=== PATIENT | female | born 1960 | race American Indian/Alaskan Native ===

== ENCOUNTER 2017-11-16 14:22 | Inpatient (IN) | payer MEDICARE ==
[2017-11-16] MEDS ORDERED: ASPIRIN PO ONE (14:43)
[2017-11-16 16:25] LABS: Basophils # (Auto) 0.1 K/mm3 (0.0-0.1); Basophils % (Auto) 2.6 % (0.0-1.8); Eosinophils # (Auto) 0.4 K/mm3 (0.0-0.4); Eosinophils % (Auto) 8.4 % (0.0-4.3); Hematocrit 40.8 % (30.3-42.9); Hemoglobin 13.5 gm/dl (10.1-14.3); Lymphocytes # (Auto) 1.5 K/mm3 (1.2-5.4); Lymphocytes % (Auto) 36.5 % (13.4-35.0); Mean Corpuscular HGB Conc 33 % (30-34); Mean Corpuscular Hemoglobin 33 pg (28-32); Mean Corpuscular Volume 98 fl (79-97); Monocytes # (Auto) 0.3 K/mm3 (0.0-0.8); Platelet Count 170 K/mm3 (140-440); Red Blood Count 4.15 M/mm3 (3.65-5.03); Red Cell Distribution Width 17.3 % (13.2-15.2)
[2017-11-16 16:35] LABS: BUN/Creatinine Ratio 11; Blood Urea Nitrogen 14 mg/dL (7-17); Calcium 10.2 mg/dL (8.4-10.2); Hemolysis Index 21
[2017-11-16] MEDS ORDERED: PROVENTIL IH ONE (17:30)
[2017-11-16] MEDS ORDERED: ATROVENT IH ONE (17:30)
--- NOTE | 2017-11-16 17:40 | Emergency Department Report ---
HPI - General Chief Complaint: Chest Pain Time Seen by Provider: 11/16/17 17:20 - HPI HPI: Room 19 The patient is a 57-year-old female presented with a chief complaint of shortness of breath and chest pain. The patient states yesterday she began developing shortness of breath in addition to dyspnea on exertion. The patient states when she awakened this morning she had a dull constant substernal chest pain and occasional pleuritic component. The patient admits to nonproductive cough since yesterday. Patient denies nausea/vomiting or diaphoresis with her pain. Patient denies any history of fever. Patient admits to occasional rhinorrhea. The patient currently gets her pain score of 8/10. The patient states her last stress test occurred over 5 years ago she could not recall the last time she received a cardiac catheterization Location: Chest, lungs Duration: [See above] Quality: Dull Severity: 8/10 Modifying factors: Exertion worsens shortness of breath Context: [see above] Mode of transportation: [not driving] ED Past Medical Hx - Past Medical History Previous Medical History?: Yes Hx Hypertension: Yes Hx COPD: Yes Hx HIV: Yes (last known CD4 count was "normal" per patient in 2017) Additional medical history: PAD, Gout - Surgical History Past Surgical History?: Yes Hx Internal Defibrillator: Yes Additional Surgical History: CABG - Family History Family history: no significant - Social History Smoking Status: Current Every Day Smoker (1/2 pack per day) Substance Use Type: None (denies illicit drug use), Alcohol (occasional) ED Review of Systems ROS: Stated complaint: CX PAIN/AMAURI Other details as noted in HPI Constitutional: denies: diaphoresis Eyes: denies: eye pain ENT: other (rhinorrhea) Respiratory: cough, shortness of breath, SOB with exertion, wheezing Cardiovascular: chest pain Endocrine: denies: unexplained weight loss Gastrointestinal: denies: abdominal pain, nausea, vomiting Musculoskeletal: myalgia Skin: denies: change in color Neurological: denies: headache Physical Exam - Physical Exam Vital Signs: Vital Signs 11/16/17 11/16/17 11/16/17 14:38 14:44 17:15 Temperature 97.9 F 98.2 F Pulse Rate 101 H 93 H Respiratory 22 22 19 Rate Blood Pressure 107/77 Blood Pressure 119/84 [Left] O2 Sat by Pulse 95 97 96 Oximetry Physical Exam: GENERAL: The patient is well-developed well-nourished female sitting on stretcher using cellphone not appearing to be in acute distress. [] HEENT: Normocephalic. Atraumatic. Extraocular motions are intact. Patient has moist mucous membranes. NECK: Supple. Trachea midline CHEST/LUNGS: Clear to auscultation. There is no respiratory distress noted. HEART/CARDIOVASCULAR: Regular. There is no tachycardia. There is no gallop rub or murmur. ABDOMEN: Abdomen is soft, nontender. Patient has normal bowel sounds. There is no abdominal distention. SKIN: There is no rash. There is no edema. There is no diaphoresis. NEURO: The patient is awake, alert, and oriented. The patient is cooperative. The patient has normal speech MUSCULOSKELETAL: There is no evidence of acute injury. ED Course Vital Signs 11/16/17 11/16/17 11/16/17 14:38 14:44 17:15 Temperature 97.9 F 98.2 F Pulse Rate 101 H 93 H Respiratory 22 22 19 Rate Blood Pressure 107/77 Blood Pressure 119/84 [Left] O2 Sat by Pulse 95 97 96 Oximetry - Consultations Consultation #1: 11/16/17 19:52 Informed by financial secretary that [facility] medicine is unable to perform V/Q scans currently secondary to lack of media ED Medical Decision Making - Lab Data Result diagrams: 11/16/17 15:47 11/16/17 15:47 - EKG Data -: EKG Interpreted by Me Rate: normal (paced rhythm at 98 bpm) - EKG Data When compared to previous EKG there are: previous EKG unavailable Interpretation: other (no ischemic changes seen) - Differential Diagnosis COPD exacerbation, CHF, ACS, pneumonia Critical care attestation.: If time is entered above; I have spent that time in minutes in the direct care of this critically ill patient, excluding procedure time. ED Disposition Clinical Impression: Shortness of breath, Hypoxia, Chest pain Disposition: OP ADMIT IP TO THIS HOSP Is pt being admited?: Yes Does the pt Need Aspirin: Yes Condition: Fair Instructions: Chest Pain (ED) Referrals: PRIMARY CARE, [Primary Care Provider] - 3-5 Days Time of Disposition: 20:00 (hospitalist paged (Dr Mobley))
[2017-11-16] MEDS ORDERED: MORPHINE IV ONE (18:11)
[2017-11-16] MEDS ORDERED: ZOFRAN IV ONE (18:11)
--- NOTE | 2017-11-16 18:38 | XRay Report ---
FINAL REPORT EXAM: XR CHEST 1V AP HISTORY: chest pain TECHNIQUE: Chest single AP PRIORS: None. FINDINGS: AICD/pacemaker identified lead wires intact. Cardiac silhouette is moderately enlarged. No focal pulmonary infiltrate identified. No pleural fluid collection seen. Pulmonary vasculature is unremarkable. There is a cardiac valve prosthesis and IMPRESSION: Pacemaker/AICD Cardiomegaly and cardiac valve prosthesis No acute pulmonary findings
[2017-11-16] MEDS ORDERED: NITRO-BID 2% TP ONE (20:01)
[2017-11-16] MEDS ORDERED: TYLENOL PO PRN (23:28)
[2017-11-16] MEDS ORDERED: NITROSTAT SL PRN (23:28)
[2017-11-16] MEDS ORDERED: ZOFRAN IV PRN (23:29)
[2017-11-16] MEDS ORDERED: ASPIRIN ONE (23:46)
[2017-11-16] MEDS: MORPHINE IV PRN (23:58)
[2017-11-17] MEDS: PROVENTIL IH PRN (01:04)
[2017-11-17 01:33] LABS: Creatine Kinase MB 2.9 ng/mL (0.0-4.0)
--- NOTE | 2017-11-17 03:11 | History and Physical Report ---
History of Present Illness Date of examination: 11/16/17 Date of admission: 11/16/17 23:21 Chief complaint: Chief complaint is chest pain, complaining of shortness of breath History of present illness: History of presenting illness, patient is a 57 year old female who has a having chest pain going on for a few days associated with shortness of breath. He has no history of nausea and vomiting, there is no history of diaphoresis the patient also denies history of dizziness and said that the pain does not radiate. She has no history of fever and no history of cough or chills. Past History Past Medical History: COPD, HIV/AIDS, hypertension, other (GOUT) Past Surgical History: No surgical history Social history: no significant social history Family history: no significant family history Medications and Allergies Allergies Allergy/AdvReac Type Severity Reaction Status Date / Time Penicillins Allergy Hives Verified 11/16/17 14:43 Home Medications Medication Instructions Recorded Confirmed Last Taken Type ALBUTEROL Inhaler [Proair] 2 puff IH QID PRN 11/16/17 11/16/17 Unknown History Allopurinol [Zyloprim] 100 mg PO DAILY 11/16/17 11/16/17 Unknown History Clopidogrel Bisulfate [Plavix] 75 mg PO DAILY 11/16/17 11/16/17 Unknown History Emtricitab/Rilpiviri/Tenof Ala 1 each PO DAILY 11/16/17 11/16/17 Unknown History [Odefsey Tablet] Furosemide [Lasix TAB] 40 mg PO DAILY 11/16/17 11/16/17 Unknown History Metoprolol [Lopressor TAB] 50 mg PO BID 11/16/17 11/16/17 Unknown History Potassium Chloride [K-Dur] 20 meq PO DAILY 11/16/17 11/16/17 Unknown History Active Meds: Active Medications Acetaminophen (Tylenol) 650 mg PO Q4H PRN PRN Reason: Headache Albuterol (Proventil) 2.5 mg IH Q6HRT PRN PRN Reason: Shortness Of Breath Last Admin: 11/17/17 01:04 Dose: 2.5 mg Aspirin (Aspirin) 325 mg PO QDAY BERE Heparin Sodium (Porcine) (Heparin) 5,000 unit SUB-Q Q12HR BERE Levofloxacin/Dextrose (Levaquin 750mg/150ml) 750 mg in 150 mls @ 100 mls/hr IV Q24HR [facility]; Protocol Methylprednisolone Sodium Succinate (Solu-Medrol) 60 mg IV Q8HR BERE Last Admin: 11/16/17 23:57 Dose: 60 mg Morphine Sulfate (Morphine) 2 mg IV Q5MIN PRN PRN Reason: Chest Pain Last Admin: 11/16/17 23:58 Dose: 2 mg Nitroglycerin (Nitrostat) 0.4 mg SL .Q5MIN PRN PRN Reason: Chest Pain Nitroglycerin (Nitro-Bid 2%) 1 inch TP QIDNTG [facility]; Protocol Ondansetron HCl (Zofran) 4 mg IV Q8H PRN PRN Reason: Nausea And Vomiting Review of Systems Constitutional: weakness, no weight loss, no weight gain, no chills, no sweats, no malaise, no lethargy Eyes: bilateral: other (NO BILATERAL EYE SYMPTOMS) Ears, nose, mouth and throat: no ear pain, no nose pain, no nasal congestion, no mouth pain, no hoarseness, no sore throat, no headache, no vertigo, no pain front of neck Breasts: deferred Cardiovascular: chest pain, no orthopnea, no palpitations, no syncope, no leg edema Respiratory: cough, shortness of breath Gastrointestinal: no abdominal pain, no vomiting, no change in bowel habits, no melena, no loss of appetite, no jaundice Genitourinary Female: no flank pain, no urgency, no urge incontinence, no vaginal dryness Rectal: no pain, no itching Musculoskeletal: no neck pain, no low back pain, no myalgias, no loss of height Integumentary: no rash, no pruritis, no redness, no sores, no lesions, no darkening of skin, no striae, no hirsutism Neurological: weakness, no tingling, no seizures, no syncope, no headaches, no migraines, no change in speech, no confusion, no double vision, no loss of vision Psychiatric: no sleep disturbances, no insomnia, no change in appetite, no hopelessness, no anhedonia Endocrine: no cold intolerance, no polyphagia, no polydipsia, no proptosis Hematologic/Lymphatic: no easy bruising, no easy bleeding, no lymphadenopathy, no lymphedema Allergic/Immunologic: no urticaria, no persistent infections Exam - Constitutional Vitals: Temp Pulse Resp BP Pulse Ox 98.2 F 95 H 20 99/67 94 11/17/17 00:42 11/17/17 01:04 11/17/17 01:04 11/17/17 00:42 11/17/17 01:08 General appearance: Present: no acute distress, well-nourished. Absent: disheveled - EENT Eyes: Present: PERRL, EOM intact. Absent: irregular pupil, scleral icterus, conjunctival injection, miosis ENT: hearing intact, no hearing decreased, no thrush - Neck Neck: Present: supple, normal ROM. Absent: masses or JVD, carotid bruits - Respiratory Respiratory effort: other Respiratory: bilateral: wheezing - Cardiovascular Rhythm: regular Heart Sounds: Present: S1 & S2. Absent: gallop, systolic murmur, diastolic murmur, rub, click - Extremities Extremities: no ischemia, No edema, Full ROM Peripheral Pulses: within normal limits - Abdominal General gastrointestinal: Present: soft, non-tender, non-distended, normal bowel sounds. Absent: tender, distended, rigid, absent bowel sounds, hepatomegaly, splenomegaly Female genitourinary: Present: deferred - Rectal Rectal Exam: deferred - Integumentary Integumentary: Present: clear, warm - Musculoskeletal Musculoskeletal: strength equal bilaterally - Neurologic Neurologic: CNII-XII intact Results - Labs CBC & Chem 7: 11/16/17 15:47 11/16/17 15:47 Labs: Laboratory Last Values WBC 4.2 K/mm3 (4.5-11.0) L 11/16/17 15:47 RBC 4.15 M/mm3 (3.65-5.03) 11/16/17 15:47 Hgb 13.5 gm/dl (10.1-14.3) 11/16/17 15:47 Hct 40.8 % (30.3-42.9) 11/16/17 15:47 MCV 98 fl (79-97) H 11/16/17 15:47 MCH 33 pg (28-32) H 11/16/17 15:47 MCHC 33 % (30-34) 11/16/17 15:47 RDW 17.3 % (13.2-15.2) H 11/16/17 15:47 Plt Count 170 K/mm3 (140-440) 11/16/17 15:47 Lymph % (Auto) 36.5 % (13.4-35.0) H 11/16/17 15:47 [place] % (Auto) 7.0 % (0.0-7.3) 11/16/17 15:47 Eos % (Auto) 8.4 % (0.0-4.3) H 11/16/17 15:47 Baso % (Auto) 2.6 % (0.0-1.8) H 11/16/17 15:47 Lymph # 1.5 K/mm3 (1.2-5.4) 11/16/17 15:47 [place] # 0.3 K/mm3 (0.0-0.8) 11/16/17 15:47 Eos # 0.4 K/mm3 (0.0-0.4) 11/16/17 15:47 Baso # 0.1 K/mm3 (0.0-0.1) 11/16/17 15:47 Seg Neutrophils % 45.5 % (40.0-70.0) 11/16/17 15:47 Seg Neutrophils # 1.9 K/mm3 (1.8-7.7) 11/16/17 15:47 D-Dimer 274.00 ng/mlDDU (0-234) H 11/16/17 17:57 POC ABG pH 7.415 (7.35-7.45) 11/16/17 18:01 POC ABG pCO2 52.4 (35-45) H 11/16/17 18:01 POC ABG pO2 63 (80-105) L 11/16/17 18:01 POC ABG HCO3 33.6 11/16/17 18:01 POC ABG Total CO2 35 11/16/17 18:01 POC ABG O2 Sat 91 11/16/17 18:01 POC ABG Base Excess 9 11/16/17 18:01 FiO2 21 % 11/16/17 18:01 Sodium 147 mmol/L (137-145) H 11/16/17 15:47 Potassium 3.2 mmol/L (3.6-5.0) L 11/16/17 15:47 Chloride 100.9 mmol/L (98-107) 11/16/17 15:47 Carbon Dioxide 35 mmol/L (22-30) H 11/16/17 15:47 Anion Gap 14 mmol/L 11/16/17 15:47 BUN 14 mg/dL (7-17) 11/16/17 15:47 Creatinine 1.3 mg/dL (0.7-1.2) H 11/16/17 15:47 Estimated GFR 42 ml/min 11/16/17 15:47 BUN/Creatinine Ratio 11 % 11/16/17 15:47 Glucose 102 mg/dL (65-100) H 11/16/17 15:47 Calcium 10.2 mg/dL (8.4-10.2) 11/16/17 15:47 Lactate Dehydrogenase 244 units/L (91-180) H 11/16/17 17:57 Total Creatine Kinase 85 units/L (30-135) 11/17/17 00:26 CK-MB (CK-2) 2.9 ng/mL (0.0-4.0) 11/17/17 00:26 CK-MB (CK-2) Rel Index 3.4 (0-4) 11/17/17 00:26 Troponin T < 0.010 ng/mL (0.00-0.029) 11/16/17 23:44 NT-Pro-B Natriuret Pep 5214 pg/mL (0-900) H 11/16/17 17:57 Assessment and Plan - Patient Problems (1) Chest pain Current Visit: Yes Status: Acute Plan to address problem: Patient will be admitted to telemetry and will have cardiac enzyme involving troponin and CPK checked every 6 hours 2 more levels, patient will remain nothing by mouth for Lexiscan stress test in the morning. Patient will be on IV morphine 2 mg every 5 minutes as needed for pain and will be on aspirin 325 mg by mouth daily. Patient will be on Nitropaste 1inch to anterior chest wall 4 times a day and also will be on sublingual nitroglycerin for breakthrough chest pain, patient will be on IV Zofran 4 mg every 8 hours for nausea and vomiting and will be on Tylenol 650 mg by mouth every follow-up for headache and fever, patient will also be on oxygen by nasal cannula at 2 L/m (2) Hypoxia Current Visit: Yes Status: Acute
[2017-11-17] MEDS: NITRO-BID 2% TP SCH ×3 (05:39→13:45)
[2017-11-17] MEDS: MORPHINE IV PRN ×2 (05:48→13:46)
[2017-11-17 06:24] LABS: Creatine Kinase MB 2.9 ng/mL (0.0-4.0)
[2017-11-17] MEDS: HEPARIN SUB-Q SCH ×2 (09:48→21:55)
[2017-11-17] MEDS ORDERED: LASIX PO SCH (10:00)
[2017-11-17] MEDS ORDERED: LEVAQUIN 750MG/150ML 750 MG/150 ML BAG IV SCH (10:00)
[2017-11-17] MEDS ORDERED: NON-FORMULARY (Emtricitab/Rilpiviri/Tenof Ala [Odefsey Tablet] 1 EACH) PO SCH (10:00)
[2017-11-17] MEDS ORDERED: ASPIRIN PO SCH (10:00)
[2017-11-17] MEDS: ZYLOPRIM PO SCH (10:01)
[2017-11-17] MEDS: K-DUR PO SCH (10:01)
[2017-11-17] MEDS: PLAVIX PO SCH (10:02)
[2017-11-17] MEDS: LOPRESSOR PO SCH ×2 (10:02→21:54)
--- NOTE | 2017-11-17 10:18 | Progress Note ---
Hospitalist Physical - Constitutional Vitals: Temp Pulse Resp BP Pulse Ox 97.6 F 77 24 117/75 99 11/17/17 08:25 11/17/17 10:02 11/17/17 08:25 11/17/17 10:02 11/17/17 08:25 General appearance: Present: no acute distress, well-nourished. Absent: disheveled Results - Labs CBC & Chem 7: 11/16/17 15:47 11/16/17 15:47 Labs: Laboratory Last Values WBC 4.2 K/mm3 (4.5-11.0) L 11/16/17 15:47 RBC 4.15 M/mm3 (3.65-5.03) 11/16/17 15:47 Hgb 13.5 gm/dl (10.1-14.3) 11/16/17 15:47 Hct 40.8 % (30.3-42.9) 11/16/17 15:47 MCV 98 fl (79-97) H 11/16/17 15:47 MCH 33 pg (28-32) H 11/16/17 15:47 MCHC 33 % (30-34) 11/16/17 15:47 RDW 17.3 % (13.2-15.2) H 11/16/17 15:47 Plt Count 170 K/mm3 (140-440) 11/16/17 15:47 Lymph % (Auto) 36.5 % (13.4-35.0) H 11/16/17 15:47 [place] % (Auto) 7.0 % (0.0-7.3) 11/16/17 15:47 Eos % (Auto) 8.4 % (0.0-4.3) H 11/16/17 15:47 Baso % (Auto) 2.6 % (0.0-1.8) H 11/16/17 15:47 Lymph # 1.5 K/mm3 (1.2-5.4) 11/16/17 15:47 [place] # 0.3 K/mm3 (0.0-0.8) 11/16/17 15:47 Eos # 0.4 K/mm3 (0.0-0.4) 11/16/17 15:47 Baso # 0.1 K/mm3 (0.0-0.1) 11/16/17 15:47 Seg Neutrophils % 45.5 % (40.0-70.0) 11/16/17 15:47 Seg Neutrophils # 1.9 K/mm3 (1.8-7.7) 11/16/17 15:47 D-Dimer 274.00 ng/mlDDU (0-234) H 11/16/17 17:57 POC ABG pH 7.415 (7.35-7.45) 11/16/17 18:01 POC ABG pCO2 52.4 (35-45) H 11/16/17 18:01 POC ABG pO2 63 (80-105) L 11/16/17 18:01 POC ABG HCO3 33.6 11/16/17 18:01 POC ABG Total CO2 35 11/16/17 18:01 POC ABG O2 Sat 91 11/16/17 18:01 POC ABG Base Excess 9 11/16/17 18:01 FiO2 21 % 11/16/17 18:01 Sodium 147 mmol/L (137-145) H 11/16/17 15:47 Potassium 3.2 mmol/L (3.6-5.0) L 11/16/17 15:47 Chloride 100.9 mmol/L (98-107) 11/16/17 15:47 Carbon Dioxide 35 mmol/L (22-30) H 11/16/17 15:47 Anion Gap 14 mmol/L 11/16/17 15:47 BUN 14 mg/dL (7-17) 11/16/17 15:47 Creatinine 1.3 mg/dL (0.7-1.2) H 11/16/17 15:47 Estimated GFR 42 ml/min 11/16/17 15:47 BUN/Creatinine Ratio 11 % 11/16/17 15:47 Glucose 102 mg/dL (65-100) H 11/16/17 15:47 Calcium 10.2 mg/dL (8.4-10.2) 11/16/17 15:47 Lactate Dehydrogenase 244 units/L (91-180) H 11/16/17 17:57 Total Creatine Kinase 79 units/L (30-135) 11/17/17 05:20 CK-MB (CK-2) 2.9 ng/mL (0.0-4.0) 11/17/17 05:20 CK-MB (CK-2) Rel Index 3.6 (0-4) 11/17/17 05:20 Troponin T < 0.010 ng/mL (0.00-0.029) 11/16/17 23:44 NT-Pro-B Natriuret Pep 5214 pg/mL (0-900) H 11/16/17 17:57
--- NOTE | 2017-11-17 12:43 | Consultation ---
History of Present Illness Consult date: 11/17/17 Consult reason: chest pain History of present illness: This is a 57yr old woman with a history of HIV disease. She also has an ischemic cardiomyopathy, CAD s/p CABG and mitral valve repair at [facility] in 2002. In addition, she has a Biventricular ICD in situ. In 2016, patient underwent RV ICD lead revision (implanted new lead and abandoned previous lead) and BiVentricular ICD generator replacement. Her latest echocardiogram documents severe dilated cardiomyopathy, bioprosthetic mitral valve/mitral valve repair with at least moderate regurgitation. Ejection fraction 10-15%. Patient presented to this hospital with complaints of shortness of breath and chest pain, admitted with COPD exacerbation. Patient also continues to smoke. A cardiac consultation was requested for evaluation of her chest pain. Patient denies unusual shortness of breath or palpitations. There is no lower extremity edema. Mild wheezing noted on exam. A chest x-ray reports cardiomegaly but no evidence of heart failure. Cardiac enzymes are negative thus far. 12 lead ECG shows a paced rhythm. Past History Past Medical History: CAD, COPD, heart failure, HIV/AIDS, hypertension Past Surgical History: CABG, Other (AICD) Social history: smoking Medications and Allergies Allergies Allergy/AdvReac Type Severity Reaction Status Date / Time Penicillins Allergy Hives Verified 11/16/17 14:43 Home Medications Medication Instructions Recorded Confirmed Last Taken Type ALBUTEROL Inhaler [Proair] 2 puff IH QID PRN 11/16/17 11/16/17 Unknown History Allopurinol [Zyloprim] 100 mg PO DAILY 11/16/17 11/16/17 Unknown History Clopidogrel Bisulfate [Plavix] 75 mg PO DAILY 11/16/17 11/16/17 Unknown History Emtricitab/Rilpiviri/Tenof Ala 1 each PO DAILY 11/16/17 11/16/17 Unknown History [Odefsey Tablet] Furosemide [Lasix TAB] 40 mg PO DAILY 11/16/17 11/16/17 Unknown History Metoprolol [Lopressor TAB] 50 mg PO BID 11/16/17 11/16/17 Unknown History Potassium Chloride [K-Dur] 20 meq PO DAILY 11/16/17 11/16/17 Unknown History Active Meds: Active Medications Acetaminophen (Tylenol) 650 mg PO Q4H PRN PRN Reason: Headache Albuterol (Proventil) 2.5 mg IH Q6HRT PRN PRN Reason: Shortness Of Breath Last Admin: 11/17/17 01:04 Dose: 2.5 mg Albuterol/Ipratropium (Duoneb *Not For Prn Use*) 1 ampul IH Q6HRT [facility] Allopurinol (Zyloprim) 100 mg PO DAILY [facility] Last Admin: 11/17/17 10:01 Dose: 100 mg Clopidogrel Bisulfate (Plavix) 75 mg PO DAILY [facility] Last Admin: 11/17/17 10:02 Dose: 75 mg Furosemide (Lasix) 40 mg PO DAILY [facility] Last Admin: 11/17/17 10:01 Dose: 40 mg Heparin Sodium (Porcine) (Heparin) 5,000 unit SUB-Q Q12HR [facility] Last Admin: 11/17/17 09:48 Dose: 5,000 unit Levofloxacin (Levaquin) 750 mg PO Q24HR [facility] Methylprednisolone Sodium Succinate (Solu-Medrol) 60 mg IV Q8HR [facility] Last Admin: 11/17/17 05:43 Dose: 60 mg Metoprolol Tartrate (Lopressor) 50 mg PO BID [facility] Last Admin: 11/17/17 10:02 Dose: 50 mg Miscellaneous Medication (Emtricitab/Rilpiviri/Tenof Ala [Odefsey Tablet]) 1 each PO DAILY [facility] Morphine Sulfate (Morphine) 2 mg IV Q5MIN PRN PRN Reason: Chest Pain Last Admin: 11/17/17 05:48 Dose: 2 mg Nitroglycerin (Nitrostat) 0.4 mg SL .Q5MIN PRN PRN Reason: Chest Pain Nitroglycerin (Nitro-Bid 2%) 1 inch TP QIDNTG [facility]; Protocol Last Admin: 11/17/17 09:47 Dose: 1 inch Ondansetron HCl (Zofran) 4 mg IV Q8H PRN PRN Reason: Nausea And Vomiting Last Admin: 11/17/17 05:48 Dose: 4 mg Potassium Chloride (K-Dur) 20 meq PO DAILY [facility] Last Admin: 11/17/17 10:01 Dose: 20 meq Physical Examination Vital Signs Temp Pulse Resp BP Pulse Ox 97.9 F 101 H 22 107/77 95 11/16/17 14:38 11/16/17 14:38 11/16/17 14:38 11/16/17 14:38 11/16/17 14:38 General appearance: no acute distress HEENT: Positive: PERRL Cardiac: Positive: Other (paced) Lungs: Positive: Wheezes Results 11/16/17 15:47 11/16/17 15:47 Cardiac Enzymes 11/16/17 11/17/17 11/17/17 Range/Units 17:57 00:26 05:20 Lactate Dehydrogenase 244 H (91-180) units/L CK-MB (CK-2) 2.9 2.9 (0.0-4.0) ng/mL CBC 11/16/17 Range/Units 15:47 WBC 4.2 L (4.5-11.0) K/mm3 RBC 4.15 (3.65-5.03) M/mm3 Hgb 13.5 (10.1-14.3) gm/dl Hct 40.8 (30.3-42.9) % Plt Count 170 (140-440) K/mm3 Lymph # 1.5 (1.2-5.4) K/mm3 [place] # 0.3 (0.0-0.8) K/mm3 Eos # 0.4 (0.0-0.4) K/mm3 Baso # 0.1 (0.0-0.1) K/mm3 Comprehensive Metabolic Panel 11/16/17 Range/Units 15:47 Sodium 147 H (137-145) mmol/L Potassium 3.2 L (3.6-5.0) mmol/L Chloride 100.9 (98-107) mmol/L Carbon Dioxide 35 H (22-30) mmol/L BUN 14 (7-17) mg/dL Creatinine 1.3 H (0.7-1.2) mg/dL Glucose 102 H (65-100) mg/dL Calcium 10.2 (8.4-10.2) mg/dL Assessment and Plan COPD exacerbation Chest pain BiVentricular ICD s/p RV ICD lead revision (implanted new lead and abandoned previous lead) and BiVentricular ICD generator replacement 06/2015. Dilated Ischemic Cardiomyopathy echo 05/2017 reports a severe dilated cardiomyopathy, bioprosthetic mitral valve/mitral valve repair with at least moderate regurgitation. Ejection fraction 10-15% Hx of CAD s/p 2 way CABG s/p Mitral valve repair in 2002 HIV disease Hypertension Tobacco abuse
--- NOTE | 2017-11-17 12:54 | Nuclear Medicine Report ---
LUNG SCAN, VENTILATION AND PERFUSION: History: Pulmonary embolus, chest pain. Technique: 5mci of Tc99m MAA was infused for the perfusion images. 15mci XE 133 gas was inhaled for the ventilatory images. Correlation is made with a chest x-ray dated 11/16/17. Findings: Inhalation of Xenon gas demonstrates normal distribution of the activity throughout both lungs. The wash out phases show moderate retention of the radiotracer bilaterally consistent with obstructive pulmonary disease. After injection of Technetium 99m macroaggregated albumin gamma camera imaging of the lungs in multiple projections demonstrates normal pulmonary contours but a slightly heterogeneous in distribution of activity. No mismatched focal areas of perfusion deficiency are identified. IMPRESSION: Low probability for pulmonary embolus.
[2017-11-17] MEDS: DUONEB *Not for PRN Use IH SCH ×2 (13:36→20:21)
[2017-11-17] MEDS: LEVAQUIN PO SCH (13:47)
[2017-11-17] MEDS: BABY ASPIRIN PO SCH (13:53)
[2017-11-17] MEDS: ZESTRIL PO SCH (13:53)
[2017-11-17] MEDS: MILRINONE-D5W 20 MG/100 ML 20 MG/100 ML BAG IV SCH (16:33)
--- NOTE | 2017-11-17 19:50 | Event Note ---
Date: 11/17/17 Patient seen and examined today continues with some shortness of breath and noted to be hypoxic with hypokalemia on admission. Elevated d-dimer for which the patient was sent to nuclear medicine to rule out PE which was low probability. In. Also Doppler of the lower extremity to rule out DVT recommendation for outpatient age-appropriate cancer screening test. Fortunately patient continues to smoke and presented with shortness of breath with chest pain that appears to be pleuritic in nature. Of concern patient has exacerbation of COPD and possibly upper respiratory infection we'll continue with antibiotic therapy at this time will obtain pulmonary consult continue oxygen extensive counseling about 15 minutes provided to the patient wanted to quit tobacco use patient verbalized understanding.
--- NOTE | 2017-11-17 21:00 | Consultation ---
History of Present Illness Consult date: 11/17/17 Reason for consult: dyspnea History of present illness: PULMONARY CONSULTATION Dr. THAO thank you for asking us to participate in the care of this patient. This is 57 year old female admitted with chest pain, shortness of breath and non productive cough.Patient has history of hypertension, CHF S/P CABG and defibrillator placement. Patient has history of COPD, Gout, Peripheral vascular disease. Patient says has arterial stent placement in left leg.Patient also has cardiac valve replacement.Patient has history of HIV/ AIDS.Patients PO2 63 on room air. Patient D dimer elevated 274. Patient had perfusion lung scan reported low probability for pulmonary emboli.Venous doppler study results pending.Patient has history of smoking 1 pack a day x 40 years. Counselled to stop smoking. Denies alcohol or drug abuse. Not and has two children. Allergic to penicillin.Worked in [employer] and in [employer] in the past. Patient presently resting on 2 litres O2 and O2 saturation 96%. Past History Past Medical History: CAD, COPD, heart failure, HIV/AIDS, hypertension Past Surgical History: CABG, Other (AICD) Social history: smoking Family history: no significant family history Medications and Allergies Allergies Allergy/AdvReac Type Severity Reaction Status Date / Time Penicillins Allergy Hives Verified 11/16/17 14:43 Home Medications Medication Instructions Recorded Confirmed Last Taken Type ALBUTEROL Inhaler [Proair] 2 puff IH QID PRN 11/16/17 11/16/17 Unknown History Allopurinol [Zyloprim] 100 mg PO DAILY 11/16/17 11/16/17 Unknown History Clopidogrel Bisulfate [Plavix] 75 mg PO DAILY 11/16/17 11/16/17 Unknown History Emtricitab/Rilpiviri/Tenof Ala 1 each PO DAILY 11/16/17 11/16/17 Unknown History [Odefsey Tablet] Furosemide [Lasix TAB] 40 mg PO DAILY 11/16/17 11/16/17 Unknown History Metoprolol [Lopressor TAB] 50 mg PO BID 11/16/17 11/16/17 Unknown History Potassium Chloride [K-Dur] 20 meq PO DAILY 11/16/17 11/16/17 Unknown History Active Meds: Active Medications Acetaminophen (Tylenol) 650 mg PO Q4H PRN PRN Reason: Headache Albuterol (Proventil) 2.5 mg IH Q6HRT PRN PRN Reason: Shortness Of Breath Last Admin: 11/17/17 01:04 Dose: 2.5 mg Albuterol/Ipratropium (Duoneb *Not For Prn Use*) 1 ampul IH Q6HRT [facility] Last Admin: 11/17/17 20:21 Dose: 1 ampul Allopurinol (Zyloprim) 100 mg PO DAILY [facility] Last Admin: 11/17/17 10:01 Dose: 100 mg Aspirin (Baby Aspirin) 81 mg PO QDAY [facility] Last Admin: 11/17/17 13:53 Dose: 81 mg Clopidogrel Bisulfate (Plavix) 75 mg PO DAILY [facility] Last Admin: 11/17/17 10:02 Dose: 75 mg Furosemide (Lasix) 40 mg IV QDAY [facility] Heparin Sodium (Porcine) (Heparin) 5,000 unit SUB-Q Q12HR [facility] Last Admin: 11/17/17 09:48 Dose: 5,000 unit Milrinone Lactate/Dextrose (Milrinone-D5w 20 Mg/100 Ml) 20 mg in 100 mls @ 5.438 mls/hr IV TITR [facility] Stop: 11/19/17 13:59 Last Admin: 11/17/17 16:33 Dose: 0.25 mcg/kg/min, 5.438 mls/hr Levofloxacin (Levaquin) 750 mg PO Q24HR [facility] Last Admin: 11/17/17 13:47 Dose: 750 mg Lisinopril (Zestril) 2.5 mg PO QDAY [facility] Last Admin: 11/17/17 13:53 Dose: 2.5 mg Methylprednisolone Sodium Succinate (Solu-Medrol) 60 mg IV Q8HR [facility] Last Admin: 11/17/17 13:45 Dose: 60 mg Metoprolol Tartrate (Lopressor) 50 mg PO BID [facility] Last Admin: 11/17/17 10:02 Dose: 50 mg Miscellaneous Medication (Emtricitab/Rilpiviri/Tenof Ala [Odefsey Tablet]) 1 each PO DAILY [facility] Morphine Sulfate (Morphine) 2 mg IV Q5MIN PRN PRN Reason: Chest Pain Last Admin: 11/17/17 13:46 Dose: 2 mg Nitroglycerin (Nitrostat) 0.4 mg SL .Q5MIN PRN PRN Reason: Chest Pain Nitroglycerin (Nitro-Bid 2%) 1 inch TP QIDNTG [facility]; Protocol Last Admin: 11/17/17 13:45 Dose: 1 inch Ondansetron HCl (Zofran) 4 mg IV Q8H PRN PRN Reason: Nausea And Vomiting Last Admin: 11/17/17 05:48 Dose: 4 mg Potassium Chloride (K-Dur) 20 meq PO DAILY [facility] Last Admin: 11/17/17 10:01 Dose: 20 meq Review of Systems All systems: negative Physical Examination Vital signs: Vital Signs Temp Pulse Resp BP Pulse Ox 97.9 F 101 H 22 107/77 95 11/16/17 14:38 11/16/17 14:38 11/16/17 14:38 11/16/17 14:38 11/16/17 14:38 General appearance: no acute distress, alert Eyes: non-icteric ENT: oropharynx moist Neck: supple, no JVD Ascultation: Bilateral: rhonchi Cardiovascular: regular rate and rhythm Gastrointestinal: normoactive bowel sounds, soft, non-tender Integumentary: normal Extremities: no cyanosis, no edema normal mental status, non-focal exam, pupils equal and round, CN II-XII normal mood appropriate Results - Laboratory Findings CBC and BMP: 11/16/17 15:47 11/16/17 15:47 ABG POC ABG pH 7.415 (7.35-7.45) 11/16/17 18:01 POC ABG pCO2 52.4 (35-45) H 11/16/17 18:01 POC ABG pO2 63 (80-105) L 11/16/17 18:01 POC ABG HCO3 33.6 11/16/17 18:01 POC ABG Total CO2 35 11/16/17 18:01 POC ABG O2 Sat 91 11/16/17 18:01 PT/INR, D-dimer D-Dimer 274.00 ng/mlDDU (0-234) H 11/16/17 17:57 Abnormal lab findings: Abnormal Labs 11/16/17 11/16/17 11/16/17 15:47 15:47 17:57 WBC 4.2 L MCV 98 H MCH 33 H RDW 17.3 H Lymph % (Auto) 36.5 H Eos % (Auto) 8.4 H Baso % (Auto) 2.6 H D-Dimer 274.00 H POC ABG pCO2 POC ABG pO2 Sodium 147 H Potassium 3.2 L Carbon Dioxide 35 H Creatinine 1.3 H Glucose 102 H Lactate Dehydrogenase NT-Pro-B Natriuret Pep 11/16/17 11/16/17 11/16/17 17:57 17:57 18:01 WBC MCV MCH RDW Lymph % (Auto) Eos % (Auto) Baso % (Auto) D-Dimer POC ABG pCO2 52.4 H POC ABG pO2 63 L Sodium Potassium Carbon Dioxide Creatinine Glucose Lactate Dehydrogenase 244 H NT-Pro-B Natriuret Pep 5214 H - Diagnostic Findings Chest x-ray: report reviewed (Cardiomegaly and cardiac valve prosthesis.), image reviewed Assessment and Plan This is 57 year old female admitted with chest pain, shortness of breath and non productive cough.Patient has history of hypertension, CHF S/P CABG and defibrillator placement. Patient has history of COPD, Gout, Peripheral vascular disease. Patient says has arterial stent placement in left leg.Patient also has cardiac valve replacement.Patient has history of HIV/ AIDS.Patients PO2 63 on room air. Patient D dimer elevated 274. Patient had perfusion lung scan reported low probability for pulmonary emboli.Venous doppler study results pending.Patient has history of smoking 1 pack a day x 40 years. Counselled to stop smoking. Denies alcohol or drug abuse. Not and has two children. Allergic to penicillin.Worked in [employer] and in [employer] in the past. Patient presently resting on 2 litres O2 and O2 saturation 96%. - Patient Problems (1) Acute and chronic respiratory failure Current Visit: Yes Status: Acute Plan to address problem: O2 2 litres via nasal canula. Albuterol/atrovent aerosol treatments q 6 hours. Continue I/V solumedrol Continue S/C Heparin Continue Levaquine. Recommend GI prophylaxis like famotidine. (2) Chest pain Current Visit: Yes Status: Acute Plan to address problem: Management as per cardiology (3) Cardiomegaly Current Visit: Yes Status: Acute Plan to address problem: Management as per cardiology (4) HIV (human immunodeficiency virus infection) Current Visit: Yes Status: Acute Plan to address problem: Recommend to consult infectious diseases. (5) Gout Current Visit: Yes Status: Acute Plan to address problem: Management as per primary care. (6) COPD (chronic obstructive pulmonary disease) Current Visit: Yes Status: Acute Plan to address problem: O2 2 litres via nasal canula. Albuterol/atrovent aerosol treatments q 6 hours. Continue I/V solumedrol Continue S/C Heparin Continue Levaquine.
[2017-11-17] MEDS: PERCOCET 5/325 PO PRN (21:55)
[2017-11-18] MEDS: DUONEB *Not for PRN Use IH SCH ×4 (02:52→20:56)
[2017-11-18] MEDS: NITRO-BID 2% TP SCH ×5 (06:01→18:17)
[2017-11-18 06:55] LABS: Hematocrit 35.7 % (30.3-42.9); Hemoglobin 11.9 gm/dl (10.1-14.3); Mean Corpuscular HGB Conc 34 % (30-34); Mean Corpuscular Hemoglobin 33 pg (28-32); Mean Corpuscular Volume 98 fl (79-97); Platelet Count 160 K/mm3 (140-440); Red Blood Count 3.63 M/mm3 (3.65-5.03); Red Cell Distribution Width 17.5 % (13.2-15.2)
[2017-11-18] MEDS: MILRINONE-D5W 20 MG/100 ML 20 MG/100 ML BAG IV SCH (08:40)
--- NOTE | 2017-11-18 09:27 | Progress Note ---
Assessment and Plan COPD exacerbation Chest pain BiVentricular ICD s/p RV ICD lead revision (implanted new lead and abandoned previous lead) and BiVentricular ICD generator replacement 06/2015. Dilated Ischemic Cardiomyopathy echo 05/2017 reports a severe dilated cardiomyopathy, bioprosthetic mitral valve/mitral valve repair with at least moderate regurgitation. Ejection fraction 10-15% Hx of CAD s/p 2 way CABG s/p Mitral valve repair in 2002 HIV disease Hypertension Tobacco abuse Recommendations: Continue medical therapy for heart failure a trial of IV milrinone, diuretics, afterload reducing agents and beta blockers. Once heart failure is optimally treated, she will benefit from a predischarge Persantin thallium for cardiac ischemia assessment. Aggressive risk factor modification has been recommended including smoking cessation. Subjective Date of service: 11/18/17 Interval history: Patient reports continued shortness of breath. Objective Vital Signs Temp Pulse Pulse Resp Resp BP Pulse Ox 11/18/17 07:40 98.4 F 67 20 98/49 96 11/18/17 04:29 97.9 F 72 18 93/53 92 11/18/17 00:24 98.2 F 77 18 95/57 90 11/18/17 00:00 84 11/17/17 22:00 98 11/17/17 20:32 98.4 F 80 18 103/67 93 11/17/17 20:31 75 20 11/17/17 20:25 96 11/17/17 20:21 76 20 11/17/17 13:53 75 11/17/17 13:52 78 20 11/17/17 13:45 75 99 11/17/17 13:35 70 16 11/17/17 13:23 79 11/17/17 11:47 97.6 F 73 18 110/70 93 11/17/17 10:02 77 117/75 11/17/17 09:47 77 117/75 - Physical Examination General: No Apparent Distress HEENT: Positive: PERRL Cardiac: Positive: Other (paved) Lungs: Positive: Wheezes - Labs and Meds CBC 11/18/17 Range/Units 06:07 WBC 4.9 (4.5-11.0) K/mm3 RBC 3.63 L (3.65-5.03) M/mm3 Hgb 11.9 (10.1-14.3) gm/dl Hct 35.7 (30.3-42.9) % Plt Count 160 (140-440) K/mm3 Comprehensive Metabolic Panel 11/18/17 Range/Units 06:07 Sodium 140 (137-145) mmol/L Potassium 4.7 D (3.6-5.0) mmol/L Chloride 96.3 L (98-107) mmol/L Carbon Dioxide 32 H (22-30) mmol/L BUN 30 H (7-17) mg/dL Creatinine 1.7 H (0.7-1.2) mg/dL Glucose 154 H (65-100) mg/dL Calcium 10.0 (8.4-10.2) mg/dL
[2017-11-18] MEDS: HEPARIN SUB-Q SCH ×2 (09:50→22:26)
[2017-11-18] MEDS: BABY ASPIRIN PO SCH (09:52)
[2017-11-18] MEDS: LEVAQUIN PO SCH (09:52)
[2017-11-18] MEDS: ZYLOPRIM PO SCH (09:52)
[2017-11-18] MEDS: K-DUR PO SCH (09:52)
[2017-11-18] MEDS: PLAVIX PO SCH (09:52)
[2017-11-18] MEDS: LOPRESSOR PO SCH ×2 (09:53→22:33)
[2017-11-18] MEDS ORDERED: LASIX IV SCH (10:00)
[2017-11-18] MEDS: PERCOCET 5/325 PO PRN ×3 (10:13→22:25)
[2017-11-18] MEDS: ZESTRIL PO SCH (10:30)
--- NOTE | 2017-11-18 13:09 | Progress Note ---
Assessment and Plan This is 57 year old female admitted with chest pain, shortness of breath and non productive cough.Patient has history of hypertension, CHF S/P CABG and defibrillator placement. Patient has history of COPD, Gout, Peripheral vascular disease. Patient says has arterial stent placement in left leg.Patient also has cardiac valve replacement.Patient has history of HIV/ AIDS.Patients PO2 63 on room air. Patient D dimer elevated 274. Patient had perfusion lung scan reported low probability for pulmonary emboli.Venous doppler study results reported no DVT or SVT..Patient has history of smoking 1 pack a day x 40 years. Counselled to stop smoking. Denies alcohol or drug abuse. Not and has two children. Allergic to penicillin.Worked in [employer] and in [employer] in the past. Patient presently resting on 2 litres O2 and O2 saturation 96%. 11/18/17 Patient alert, awake. Resting on nasal canula 2.5 litres O2. O2 saturation 96%. Still complaining some shortness of breath. No acute respiratory distress at rest. - Patient Problems (1) Acute and chronic respiratory failure Current Visit: Yes Status: Acute Plan to address problem: O2 2 litres via nasal canula. Albuterol/atrovent aerosol treatments q 6 hours. Continue I/V solumedrol Continue S/C Heparin Continue Levaquine. Recommend GI prophylaxis like famotidine. (2) Chest pain Current Visit: Yes Status: Acute Plan to address problem: Management as per cardiology (3) Cardiomegaly Current Visit: Yes Status: Acute Plan to address problem: Management as per cardiology (4) HIV (human immunodeficiency virus infection) Current Visit: Yes Status: Acute Plan to address problem: Recommend to consult infectious diseases. (5) Gout Current Visit: Yes Status: Acute Plan to address problem: Management as per primary care. (6) COPD (chronic obstructive pulmonary disease) Current Visit: Yes Status: Acute Plan to address problem: O2 2 litres via nasal canula. Albuterol/atrovent aerosol treatments q 6 hours. Continue I/V solumedrol Continue S/C Heparin Continue Levaquine. Subjective Date of service: 11/18/17 Interval history: Patient alert, awake. Resting on nasal canula 2.5 litres O2. O2 saturation 96%. Still complaining some shortness of breath. No acute respiratory distress at rest. Objective Vital Signs - 12hr 11/18/17 11/18/17 11/18/17 04:29 07:40 11:42 Temperature 97.9 F 98.4 F 98.3 F Pulse Rate 72 67 81 Respiratory 18 20 18 Rate Blood Pressure 93/53 98/49 92/52 O2 Sat by Pulse 92 96 93 Oximetry Constitutional: no acute distress, alert Eyes: non-icteric ENT: oropharynx moist Neck: supple, no JVD Ascultation: Bilateral: rhonchi Cardiovascular: regular rate and rhythm Gastrointestinal: normoactive bowel sounds, soft, non-tender Integumentary: normal Extremities: no cyanosis, no edema Neurologic: normal mental status, non-focal exam, pupils equal and round, CN II- XII normal Psychiatric: mood appropriate CBC and BMP: 11/18/17 06:07 11/18/17 06:07 ABG, PT/INR, D-dimer: ABG POC ABG pH 7.415 (7.35-7.45) 11/16/17 18:01 POC ABG pCO2 52.4 (35-45) H 11/16/17 18:01 POC ABG pO2 63 (80-105) L 11/16/17 18:01 POC ABG HCO3 33.6 11/16/17 18:01 POC ABG Total CO2 35 11/16/17 18:01 POC ABG O2 Sat 91 11/16/17 18:01 PT/INR, D-dimer D-Dimer 274.00 ng/mlDDU (0-234) H 11/16/17 17:57 Abnormal lab findings: Abnormal Labs 11/16/17 11/16/17 11/16/17 15:47 15:47 17:57 WBC 4.2 L RBC MCV 98 H MCH 33 H RDW 17.3 H Lymph % (Auto) 36.5 H Eos % (Auto) 8.4 H Baso % (Auto) 2.6 H D-Dimer 274.00 H POC ABG pCO2 POC ABG pO2 Sodium 147 H Potassium 3.2 L Chloride Carbon Dioxide 35 H BUN Creatinine 1.3 H Glucose 102 H Lactate Dehydrogenase NT-Pro-B Natriuret Pep 11/16/17 11/16/17 11/16/17 17:57 17:57 18:01 WBC RBC MCV MCH RDW Lymph % (Auto) Eos % (Auto) Baso % (Auto) D-Dimer POC ABG pCO2 52.4 H POC ABG pO2 63 L Sodium Potassium Chloride Carbon Dioxide BUN Creatinine Glucose Lactate Dehydrogenase 244 H NT-Pro-B Natriuret Pep 5214 H 11/18/17 11/18/17 06:07 06:07 WBC RBC 3.63 L MCV 98 H MCH 33 H RDW 17.5 H Lymph % (Auto) Eos % (Auto) Baso % (Auto) D-Dimer POC ABG pCO2 POC ABG pO2 Sodium Potassium Chloride 96.3 L Carbon Dioxide 32 H BUN 30 H Creatinine 1.7 H Glucose 154 H Lactate Dehydrogenase NT-Pro-B Natriuret Pep Additional Studies: Venous doppler studies of legs reported no DVT or SVT.
--- NOTE | 2017-11-18 13:16 | Vascular Lab Report ---
LOWER EXTREMITY VENOUS DUPLEX: REASON FOR EXAM: DVT. COMMENTS ON THE RIGHT: All veins visualized are freely compressible without evidence of internal echogenicity. Flow is spontaneous and phasic throughout. GSV is surgically absent. COMMENTS ON THE LEFT: All veins visualized are freely compressible without evidence of internal echogenicity. Flow is spontaneous and phasic throughout. IMPRESSION: No evidence of acute or chronic deep venous thrombosis in either lower extremity.
--- NOTE | 2017-11-18 16:28 | Progress Note ---
Assessment and Plan Assessment and plan: patient is a 57 year old female who has a having chest pain going on for a few days associated with shortness of breath. He has no history of nausea and vomiting, there is no history of diaphoresis the patient also denies history of dizziness and said that the pain does not radiate. She has no history of fever and no history of cough or chills. Atypical chest pain Pleurtic secondary to COPD COPD exacerbation Acute on chronic respiratory failure HIV/AIDS Congestive heart failure status post CABG and defibrillator Vascular disease GOUT PLAN * Supportive care * Continue solumedrol * NEBS, LABA/GARY * Inhaled cortiocosteroids * Smoking cessation counselling * Cardiology input noted, ischemic work up once respiratory status improves. * DVT/GI prophy Plan discussed with the patient in detail and she verablized understanding History Interval history: Patient seen and examined this morning still with shortness of breath and congestion feeling. No further chest pain. Hospitalist Physical - Physical exam Narrative exam: VITAL SIGNS: Reviewed. GENERAL: The patient appeared well nourished and normally developed. Vital signs as documented. HEAD: No signs of head trauma. EYES: Pupils are equal. Extraocular motions intact. EARS: Hearing grossly intact. MOUTH: Oropharynx is normal. NECK: No adenopathy, no JVD. CHEST: Chest with crackles and expiratory wheeze breath sounds bilaterally. CARDIAC: Regular rate and rhythm. S1 and S2, without murmurs, gallops, or rubs. VASCULAR: No Edema. Peripheral pulses normal and equal in all extremities. ABDOMEN: Soft, without detectable tenderness. No sign of distention. No rebound or guarding, and no masses palpated. Bowel Sounds normal. MUSCULOSKELETAL: Good range of motion of all major joints. Extremities without clubbing, cyanosis or edema. NEUROLOGIC EXAM: Alert and oriented x 3. No focal sensory or strength deficits. Speech normal. Follows commands. PSYCHIATRIC: Mood normal. SKIN: No rash or lesions. - Constitutional Vitals: Temp Pulse Resp BP Pulse Ox 98.3 F 81 18 92/52 93 11/18/17 11:42 11/18/17 11:42 11/18/17 11:42 11/18/17 11:42 11/18/17 11:42 General appearance: Present: no acute distress Results - Labs CBC & Chem 7: 11/18/17 06:07 11/18/17 06:07 Labs: Laboratory Last Values WBC 4.9 K/mm3 (4.5-11.0) 11/18/17 06:07 RBC 3.63 M/mm3 (3.65-5.03) L 11/18/17 06:07 Hgb 11.9 gm/dl (10.1-14.3) 11/18/17 06:07 Hct 35.7 % (30.3-42.9) 11/18/17 06:07 MCV 98 fl (79-97) H 11/18/17 06:07 MCH 33 pg (28-32) H 11/18/17 06:07 MCHC 34 % (30-34) 11/18/17 06:07 RDW 17.5 % (13.2-15.2) H 11/18/17 06:07 Plt Count 160 K/mm3 (140-440) 11/18/17 06:07 Lymph % (Auto) 36.5 % (13.4-35.0) H 11/16/17 15:47 [place] % (Auto) 7.0 % (0.0-7.3) 11/16/17 15:47 Eos % (Auto) 8.4 % (0.0-4.3) H 11/16/17 15:47 Baso % (Auto) 2.6 % (0.0-1.8) H 11/16/17 15:47 Lymph # 1.5 K/mm3 (1.2-5.4) 11/16/17 15:47 [place] # 0.3 K/mm3 (0.0-0.8) 11/16/17 15:47 Eos # 0.4 K/mm3 (0.0-0.4) 11/16/17 15:47 Baso # 0.1 K/mm3 (0.0-0.1) 11/16/17 15:47 Seg Neutrophils % 45.5 % (40.0-70.0) 11/16/17 15:47 Seg Neutrophils # 1.9 K/mm3 (1.8-7.7) 11/16/17 15:47 D-Dimer 274.00 ng/mlDDU (0-234) H 11/16/17 17:57 POC ABG pH 7.415 (7.35-7.45) 11/16/17 18:01 POC ABG pCO2 52.4 (35-45) H 11/16/17 18:01 POC ABG pO2 63 (80-105) L 11/16/17 18:01 POC ABG HCO3 33.6 11/16/17 18:01 POC ABG Total CO2 35 11/16/17 18:01 POC ABG O2 Sat 91 11/16/17 18:01 POC ABG Base Excess 9 11/16/17 18:01 FiO2 21 % 11/16/17 18:01 Sodium 140 mmol/L (137-145) 11/18/17 06:07 Potassium 4.7 mmol/L (3.6-5.0) D 11/18/17 06:07 Chloride 96.3 mmol/L (98-107) L 11/18/17 06:07 Carbon Dioxide 32 mmol/L (22-30) H 11/18/17 06:07 Anion Gap 16 mmol/L 11/18/17 06:07 BUN 30 mg/dL (7-17) H 11/18/17 06:07 Creatinine 1.7 mg/dL (0.7-1.2) H 11/18/17 06:07 Estimated GFR 37 ml/min 11/18/17 06:07 BUN/Creatinine Ratio 18 % 11/18/17 06:07 Glucose 154 mg/dL (65-100) H 11/18/17 06:07 Calcium 10.0 mg/dL (8.4-10.2) 11/18/17 06:07 Lactate Dehydrogenase 244 units/L (91-180) H 11/16/17 17:57 Total Creatine Kinase 79 units/L (30-135) 11/17/17 05:20 CK-MB (CK-2) 2.9 ng/mL (0.0-4.0) 11/17/17 05:20 CK-MB (CK-2) Rel Index 3.6 (0-4) 11/17/17 05:20 Troponin T < 0.010 ng/mL (0.00-0.029) 11/16/17 23:44 NT-Pro-B Natriuret Pep 5214 pg/mL (0-900) H 11/16/17 17:57
[2017-11-18] MEDS: COLACE PO PRN (22:25)
[2017-11-18] MEDS: LASIX IV SCH (22:26)
[2017-11-19] MEDS: DUONEB *Not for PRN Use IH SCH ×4 (02:51→20:12)
[2017-11-19] MEDS: MILRINONE-D5W 20 MG/100 ML 20 MG/100 ML BAG IV SCH (04:04)
[2017-11-19 05:11] LABS: Calcium 9.8 mg/dL (8.4-10.2)
[2017-11-19] MEDS: PERCOCET 5/325 PO PRN ×4 (05:26→21:42)
[2017-11-19] MEDS: NITRO-BID 2% TP SCH ×4 (06:14→18:28)
[2017-11-19] MEDS ORDERED: D50W (25GM) Syringe IV PRN (08:36)
[2017-11-19] MEDS: HEPARIN SUB-Q SCH ×2 (10:25→21:43)
[2017-11-19] MEDS: LEVAQUIN PO SCH (10:31)
[2017-11-19] MEDS: ZYLOPRIM PO SCH (10:31)
[2017-11-19] MEDS: BABY ASPIRIN PO SCH (10:31)
[2017-11-19] MEDS: K-DUR PO SCH (10:31)
[2017-11-19] MEDS: PLAVIX PO SCH (10:32)
[2017-11-19] MEDS: LOPRESSOR PO SCH ×2 (10:33→21:43)
[2017-11-19] MEDS: ZESTRIL PO SCH (10:35)
--- NOTE | 2017-11-19 11:11 | Progress Note ---
Assessment and Plan Assessment and plan: patient is a 57 year old female who has a having chest pain going on for a few days associated with shortness of breath. He has no history of nausea and vomiting, there is no history of diaphoresis the patient also denies history of dizziness and said that the pain does not radiate. She has no history of fever and no history of cough or chills. Atypical chest pain Pleurtic secondary to COPD COPD exacerbation SERGIO on ckd Acute on chronic respiratory failure HIV/AIDS Congestive heart failure status post CABG and defibrillator Vascular disease GOUT PLAN * Supportive care * Creatinine stable, if worsening will stop ACEI and adjust lasix. * Continue solumedrol AND TAPER * NEBS, LABA/GARY * Inhaled cortiocosteroids * Smoking cessation counselling * Cardiology input noted, ischemic work up once respiratory status improves. * DVT/GI prophy Plan discussed with the patient in detail and she verbalized understanding History Interval history: Patient seen and examined this morning still with shortness of breath and congestion feeling. No further chest pain. Hospitalist Physical - Physical exam Narrative exam: VITAL SIGNS: Reviewed. GENERAL: The patient appeared well nourished and normally developed. Vital signs as documented. HEAD: No signs of head trauma. EYES: Pupils are equal. Extraocular motions intact. EARS: Hearing grossly intact. MOUTH: Oropharynx is normal. NECK: No adenopathy, no JVD. CHEST: Chest with crackles and expiratory wheeze breath sounds bilaterally. CARDIAC: Regular rate and rhythm. S1 and S2, without murmurs, gallops, or rubs. VASCULAR: No Edema. Peripheral pulses normal and equal in all extremities. ABDOMEN: Soft, without detectable tenderness. No sign of distention. No rebound or guarding, and no masses palpated. Bowel Sounds normal. MUSCULOSKELETAL: Good range of motion of all major joints. Extremities without clubbing, cyanosis or edema. NEUROLOGIC EXAM: Alert and oriented x 3. No focal sensory or strength deficits. Speech normal. Follows commands. PSYCHIATRIC: Mood normal. SKIN: No rash or lesions. - Constitutional Vitals: Temp Pulse Resp BP Pulse Ox 98.1 F 84 20 103/69 96 11/19/17 05:47 11/19/17 10:33 11/19/17 10:35 11/19/17 10:35 11/19/17 07:45 General appearance: Present: no acute distress Results - Labs CBC & Chem 7: 11/18/17 06:07 11/19/17 04:28 Labs: Laboratory Last Values WBC 4.9 K/mm3 (4.5-11.0) 11/18/17 06:07 RBC 3.63 M/mm3 (3.65-5.03) L 11/18/17 06:07 Hgb 11.9 gm/dl (10.1-14.3) 11/18/17 06:07 Hct 35.7 % (30.3-42.9) 11/18/17 06:07 MCV 98 fl (79-97) H 11/18/17 06:07 MCH 33 pg (28-32) H 11/18/17 06:07 MCHC 34 % (30-34) 11/18/17 06:07 RDW 17.5 % (13.2-15.2) H 11/18/17 06:07 Plt Count 160 K/mm3 (140-440) 11/18/17 06:07 Lymph % (Auto) 36.5 % (13.4-35.0) H 11/16/17 15:47 [place] % (Auto) 7.0 % (0.0-7.3) 11/16/17 15:47 Eos % (Auto) 8.4 % (0.0-4.3) H 11/16/17 15:47 Baso % (Auto) 2.6 % (0.0-1.8) H 11/16/17 15:47 Lymph # 1.5 K/mm3 (1.2-5.4) 11/16/17 15:47 [place] # 0.3 K/mm3 (0.0-0.8) 11/16/17 15:47 Eos # 0.4 K/mm3 (0.0-0.4) 11/16/17 15:47 Baso # 0.1 K/mm3 (0.0-0.1) 11/16/17 15:47 Seg Neutrophils % 45.5 % (40.0-70.0) 11/16/17 15:47 Seg Neutrophils # 1.9 K/mm3 (1.8-7.7) 11/16/17 15:47 D-Dimer 274.00 ng/mlDDU (0-234) H 11/16/17 17:57 POC ABG pH 7.415 (7.35-7.45) 11/16/17 18:01 POC ABG pCO2 52.4 (35-45) H 11/16/17 18:01 POC ABG pO2 63 (80-105) L 11/16/17 18:01 POC ABG HCO3 33.6 11/16/17 18:01 POC ABG Total CO2 35 11/16/17 18:01 POC ABG O2 Sat 91 11/16/17 18:01 POC ABG Base Excess 9 11/16/17 18:01 FiO2 21 % 11/16/17 18:01 Sodium 139 mmol/L (137-145) 11/19/17 04:28 Potassium 4.7 mmol/L (3.6-5.0) 11/19/17 04:28 Chloride 96.2 mmol/L (98-107) L 11/19/17 04:28 Carbon Dioxide 34 mmol/L (22-30) H 11/19/17 04:28 Anion Gap 14 mmol/L 11/19/17 04:28 BUN 39 mg/dL (7-17) H 11/19/17 04:28 Creatinine 1.6 mg/dL (0.7-1.2) H 11/19/17 04:28 Estimated GFR 40 ml/min 11/19/17 04:28 BUN/Creatinine Ratio 24 % 11/19/17 04:28 Glucose 246 mg/dL (65-100) H 11/19/17 04:28 Calcium 9.8 mg/dL (8.4-10.2) 11/19/17 04:28 Lactate Dehydrogenase 244 units/L (91-180) H 11/16/17 17:57 Total Creatine Kinase 79 units/L (30-135) 11/17/17 05:20 CK-MB (CK-2) 2.9 ng/mL (0.0-4.0) 11/17/17 05:20 CK-MB (CK-2) Rel Index 3.6 (0-4) 11/17/17 05:20 Troponin T < 0.010 ng/mL (0.00-0.029) 11/16/17 23:44 NT-Pro-B Natriuret Pep 5214 pg/mL (0-900) H 11/16/17 17:57
--- NOTE | 2017-11-19 13:01 | Progress Note ---
Assessment and Plan COPD exacerbation Chest pain BiVentricular ICD s/p RV ICD lead revision (implanted new lead and abandoned previous lead) and BiVentricular ICD generator replacement 06/2015. Dilated Ischemic Cardiomyopathy echo 05/2017 reports a severe dilated cardiomyopathy, bioprosthetic mitral valve/mitral valve repair with at least moderate regurgitation. Ejection fraction 10-15% Hx of CAD s/p 2 way CABG s/p Mitral valve repair in 2002 HIV disease Hypertension Tobacco abuse Recommendations: Continue current medical therapy Once heart failure and COPD exacerbation is optimally treated, she will benefit from a predischarge Persantin thallium for cardiac ischemia assessment. Aggressive risk factor modification has been recommended including smoking cessation. Subjective Date of service: 11/19/17 Interval history: Pt continues to have SOB Objective Vital Signs Temp Pulse Pulse Resp Resp BP Pulse Ox 11/19/17 10:35 20 103/69 11/19/17 10:34 103/69 11/19/17 10:33 84 103/69 11/19/17 10:00 84 97 11/19/17 07:54 85 18 11/19/17 07:45 82 18 96 11/19/17 05:47 98.1 F 82 18 106/64 97 11/19/17 03:02 91 H 16 11/19/17 02:51 87 15 11/19/17 00:00 85 11/18/17 23:34 98.5 F 89 18 118/65 97 11/18/17 22:33 82 106/60 11/18/17 21:07 82 16 11/18/17 21:00 96 11/18/17 20:57 85 15 11/18/17 19:40 98.2 F 87 18 106/60 96 11/18/17 16:47 98.5 F 85 20 99/62 97 11/18/17 14:50 92 H 18 11/18/17 14:35 86 18 - Physical Examination General: No Apparent Distress HEENT: Positive: PERRL Cardiac: Positive: Reg Rate and Rhythm Lungs: Positive: Wheezes, Rhonchi Abdomen: Positive: Soft Extremities: Present: edema - Labs and Meds Comprehensive Metabolic Panel 11/19/17 Range/Units 04:28 Sodium 139 (137-145) mmol/L Potassium 4.7 (3.6-5.0) mmol/L Chloride 96.2 L (98-107) mmol/L Carbon Dioxide 34 H (22-30) mmol/L BUN 39 H (7-17) mg/dL Creatinine 1.6 H (0.7-1.2) mg/dL Glucose 246 H (65-100) mg/dL Calcium 9.8 (8.4-10.2) mg/dL
--- NOTE | 2017-11-19 13:15 | Progress Note ---
Assessment and Plan Acute on Chronic Hypoxemic Resp Failure Acute CODPD exacerbation HIV +ve Congestive heart failure status post CABG and defibrillator Atypical Chest Pain H/O Gout Cardiomegaly SERGIO on ckd Acute on chronic respiratory failure HIV/AIDS - add brovana and pulmicort - continue supplemental oxygen - continue GARY - continue systemic steroids - optimize cardiac function - VTE w/p negative - GI & VTE prophylaxis - complete empiric levaquin course - agree with diuresis - continue other care per attending / other consultants ... 35' Subjective Date of service: 11/19/17 Principal diagnosis: Acute COPD exacerbation; HIV +ve; Atypical Chest Pain; H/O CHF s/p AICD Interval history: Patient is seen today for: Acute COPD exacerbation; HIV +ve; Atypical Chest Pain ; H/O CHF s/p AICD Seen and examined at bedside; 24-hour events reviewed; nursing and respiratory care staff consulted; states no more chest pains; still SOB; No N/V/F/C; no palpitations Objective Vital Signs - 12hr 11/19/17 11/19/17 11/19/17 02:51 03:02 05:47 Temperature 98.1 F Pulse Rate 82 Pulse Rate [ 87 91 H Anterior Bilateral Throughout] Respiratory 18 Rate Respiratory 15 16 Rate [Anterior Bilateral Throughout] Blood Pressure 106/64 O2 Sat by Pulse 97 Oximetry 11/19/17 11/19/17 11/19/17 07:45 07:54 10:00 Temperature Pulse Rate 84 Pulse Rate [ 82 85 Anterior Bilateral Throughout] Respiratory Rate Respiratory 18 18 Rate [Anterior Bilateral Throughout] Blood Pressure O2 Sat by Pulse 96 97 Oximetry 11/19/17 11/19/17 11/19/17 10:33 10:34 10:35 Temperature Pulse Rate 84 Pulse Rate [ Anterior Bilateral Throughout] Respiratory 20 Rate Respiratory Rate [Anterior Bilateral Throughout] Blood Pressure 103/69 103/69 103/69 O2 Sat by Pulse Oximetry Constitutional: no acute distress, alert, other (middle aged AAF, normocephalic and atraumatic) Eyes: non-icteric ENT: oropharynx moist, other (mallampati 3) Neck: supple, no JVD, other (no thyromegaly) Effort: mildly labored Ascultation: Bilateral: diminished breath sounds, rhonchi, other (prolonged exp phase) Percussion: Bilateral: not dull Cardiovascular: regular rate and rhythm, other (No R/M) Gastrointestinal: normoactive bowel sounds, soft, non-tender, non-distended, other (No HSM) Integumentary: normal Extremities: no cyanosis, no edema, pulses normal, no ischemia or petechiae Neurologic: normal mental status, non-focal exam, pupils equal and round, CN II- XII normal, motor strength normal and Psychiatric: mood appropriate, affect normal CBC and BMP: 11/18/17 06:07 11/19/17 04:28 ABG, PT/INR, D-dimer: ABG POC ABG pH 7.415 (7.35-7.45) 11/16/17 18:01 POC ABG pCO2 52.4 (35-45) H 11/16/17 18:01 POC ABG pO2 63 (80-105) L 11/16/17 18:01 POC ABG HCO3 33.6 11/16/17 18:01 POC ABG Total CO2 35 11/16/17 18:01 POC ABG O2 Sat 91 11/16/17 18:01 PT/INR, D-dimer D-Dimer 274.00 ng/mlDDU (0-234) H 11/16/17 17:57 Abnormal lab findings: Abnormal Labs 11/16/17 11/16/17 11/16/17 15:47 15:47 17:57 WBC 4.2 L RBC MCV 98 H MCH 33 H RDW 17.3 H Lymph % (Auto) 36.5 H Eos % (Auto) 8.4 H Baso % (Auto) 2.6 H D-Dimer 274.00 H POC ABG pCO2 POC ABG pO2 Sodium 147 H Potassium 3.2 L Chloride Carbon Dioxide 35 H BUN Creatinine 1.3 H Glucose 102 H POC Glucose Lactate Dehydrogenase NT-Pro-B Natriuret Pep 11/16/17 11/16/17 11/16/17 17:57 17:57 18:01 WBC RBC MCV MCH RDW Lymph % (Auto) Eos % (Auto) Baso % (Auto) D-Dimer POC ABG pCO2 52.4 H POC ABG pO2 63 L Sodium Potassium Chloride Carbon Dioxide BUN Creatinine Glucose POC Glucose Lactate Dehydrogenase 244 H NT-Pro-B Natriuret Pep 5214 H 11/18/17 11/18/17 11/19/17 06:07 06:07 04:28 WBC RBC 3.63 L MCV 98 H MCH 33 H RDW 17.5 H Lymph % (Auto) Eos % (Auto) Baso % (Auto) D-Dimer POC ABG pCO2 POC ABG pO2 Sodium Potassium Chloride 96.3 L 96.2 L Carbon Dioxide 32 H 34 H BUN 30 H 39 H Creatinine 1.7 H 1.6 H Glucose 154 H 246 H POC Glucose Lactate Dehydrogenase NT-Pro-B Natriuret Pep 11/19/17 12:09 WBC RBC MCV MCH RDW Lymph % (Auto) Eos % (Auto) Baso % (Auto) D-Dimer POC ABG pCO2 POC ABG pO2 Sodium Potassium Chloride Carbon Dioxide BUN Creatinine Glucose POC Glucose 267 H Lactate Dehydrogenase NT-Pro-B Natriuret Pep Chest x-ray: image reviewed (gross cardiomegaly; mild CHF pattermn with small pleural effusions) Allied health notes reviewed: nursing
[2017-11-19] MEDS: HumaLOG SUB-Q SCH ×3 (14:50→21:44)
[2017-11-19] MEDS: PROVENTIL IH PRN (15:00)
[2017-11-19] MEDS: BROVANA NEBU IH SCH (20:12)
[2017-11-19] MEDS: PULMICORT IH SCH (20:12)
[2017-11-19] MEDS: LASIX IV SCH (21:42)
[2017-11-20] MEDS: PERCOCET 5/325 PO PRN ×3 (04:28→19:38)
[2017-11-20] MEDS: NITRO-BID 2% TP SCH ×4 (05:28→17:34)
[2017-11-20] MEDS: ORAJEL 20% MM PRN ×3 (06:22→21:21)
[2017-11-20] MEDS: HumaLOG SUB-Q SCH ×4 (07:30→21:20)
[2017-11-20 08:25] LABS: Calcium 9.6 mg/dL (8.4-10.2)
--- NOTE | 2017-11-20 08:59 | Progress Note ---
Assessment and Plan Assessment and plan: patient is a 57 year old female who has a having chest pain going on for a few days associated with shortness of breath. He has no history of nausea and vomiting, there is no history of diaphoresis the patient also denies history of dizziness and said that the pain does not radiate. She has no history of fever and no history of cough or chills. Atypical chest pain Pleurtic secondary to COPD COPD exacerbation SERGIO on ckd Acute on chronic respiratory failure HIV/AIDS Congestive heart failure status post CABG and defibrillator Vascular disease GOUT PLAN * Supportive care * Creatinine improved TO 1.3, if worsening will stop ACEI and adjust lasix. * Brovana and pulmoncort * Continue solumedrol AND TAPER * NEBS, LABA/GARY * Inhaled cortiocosteroids * Smoking cessation counselling * Cardiology input noted, ischemic work up once respiratory status improves. * DVT/GI prophy Plan discussed with the patient in detail and she verbalized understanding History Interval history: Patient seen and examined this morning some notable improvement but not yet at baseline Hospitalist Physical - Physical exam Narrative exam: VITAL SIGNS: Reviewed. GENERAL: The patient appeared well nourished and normally developed. Vital signs as documented. HEAD: No signs of head trauma. EYES: Pupils are equal. Extraocular motions intact. EARS: Hearing grossly intact. MOUTH: Oropharynx is normal. NECK: No adenopathy, no JVD. CHEST: Chest with expiratory wheeze breath sounds bilaterally. CARDIAC: Regular rate and rhythm. S1 and S2, without murmurs, gallops, or rubs. VASCULAR: No Edema. Peripheral pulses normal and equal in all extremities. ABDOMEN: Soft, without detectable tenderness. No sign of distention. No rebound or guarding, and no masses palpated. Bowel Sounds normal. MUSCULOSKELETAL: Good range of motion of all major joints. Extremities without clubbing, cyanosis or edema. NEUROLOGIC EXAM: Alert and oriented x 3. No focal sensory or strength deficits. Speech normal. Follows commands. PSYCHIATRIC: Mood normal. SKIN: No rash or lesions. - Constitutional Vitals: Temp Pulse Resp BP Pulse Ox 98.4 F 75 16 127/84 99 11/20/17 07:08 11/20/17 07:08 11/20/17 07:08 11/20/17 07:08 11/20/17 07:08 General appearance: Present: no acute distress Results - Labs CBC & Chem 7: 11/18/17 06:07 11/20/17 07:28 Labs: Laboratory Last Values WBC 4.9 K/mm3 (4.5-11.0) 11/18/17 06:07 RBC 3.63 M/mm3 (3.65-5.03) L 11/18/17 06:07 Hgb 11.9 gm/dl (10.1-14.3) 11/18/17 06:07 Hct 35.7 % (30.3-42.9) 11/18/17 06:07 MCV 98 fl (79-97) H 11/18/17 06:07 MCH 33 pg (28-32) H 11/18/17 06:07 MCHC 34 % (30-34) 11/18/17 06:07 RDW 17.5 % (13.2-15.2) H 11/18/17 06:07 Plt Count 160 K/mm3 (140-440) 11/18/17 06:07 Lymph % (Auto) 36.5 % (13.4-35.0) H 11/16/17 15:47 [place] % (Auto) 7.0 % (0.0-7.3) 11/16/17 15:47 Eos % (Auto) 8.4 % (0.0-4.3) H 11/16/17 15:47 Baso % (Auto) 2.6 % (0.0-1.8) H 11/16/17 15:47 Lymph # 1.5 K/mm3 (1.2-5.4) 11/16/17 15:47 [place] # 0.3 K/mm3 (0.0-0.8) 11/16/17 15:47 Eos # 0.4 K/mm3 (0.0-0.4) 11/16/17 15:47 Baso # 0.1 K/mm3 (0.0-0.1) 11/16/17 15:47 Seg Neutrophils % 45.5 % (40.0-70.0) 11/16/17 15:47 Seg Neutrophils # 1.9 K/mm3 (1.8-7.7) 11/16/17 15:47 D-Dimer 274.00 ng/mlDDU (0-234) H 11/16/17 17:57 POC ABG pH 7.415 (7.35-7.45) 11/16/17 18:01 POC ABG pCO2 52.4 (35-45) H 11/16/17 18:01 POC ABG pO2 63 (80-105) L 11/16/17 18:01 POC ABG HCO3 33.6 11/16/17 18:01 POC ABG Total CO2 35 11/16/17 18:01 POC ABG O2 Sat 91 11/16/17 18:01 POC ABG Base Excess 9 11/16/17 18:01 FiO2 21 % 11/16/17 18:01 Sodium 140 mmol/L (137-145) 11/20/17 07:28 Potassium 4.8 mmol/L (3.6-5.0) 11/20/17 07:28 Chloride 95.8 mmol/L (98-107) L 11/20/17 07:28 Carbon Dioxide 31 mmol/L (22-30) H 11/20/17 07:28 Anion Gap 18 mmol/L 11/20/17 07:28 BUN 34 mg/dL (7-17) H 11/20/17 07:28 Creatinine 1.3 mg/dL (0.7-1.2) H 11/20/17 07:28 Estimated GFR 51 ml/min 11/20/17 07:28 BUN/Creatinine Ratio 26 % 11/20/17 07:28 Glucose 139 mg/dL (65-100) H 11/20/17 07:28 POC Glucose 98 (70-105) 11/19/17 15:49 Calcium 9.6 mg/dL (8.4-10.2) 11/20/17 07:28 Lactate Dehydrogenase 244 units/L (91-180) H 11/16/17 17:57 Total Creatine Kinase 79 units/L (30-135) 11/17/17 05:20 CK-MB (CK-2) 2.9 ng/mL (0.0-4.0) 11/17/17 05:20 CK-MB (CK-2) Rel Index 3.6 (0-4) 11/17/17 05:20 Troponin T < 0.010 ng/mL (0.00-0.029) 11/16/17 23:44 NT-Pro-B Natriuret Pep 5214 pg/mL (0-900) H 11/16/17 17:57
[2017-11-20] MEDS: HEPARIN SUB-Q SCH ×2 (10:18→21:21)
[2017-11-20] MEDS: BABY ASPIRIN PO SCH (10:18)
[2017-11-20] MEDS: LOPRESSOR PO SCH ×2 (10:19→21:20)
[2017-11-20] MEDS: LEVAQUIN PO SCH (10:19)
[2017-11-20] MEDS: PLAVIX PO SCH (10:19)
[2017-11-20] MEDS: K-DUR PO SCH (10:19)
[2017-11-20] MEDS: ZESTRIL PO SCH (10:20)
[2017-11-20] MEDS: ZYLOPRIM PO SCH (10:20)
[2017-11-20] MEDS: PULMICORT IH SCH ×2 (10:35→21:09)
[2017-11-20] MEDS: DUONEB *Not for PRN Use IH SCH ×2 (10:36→21:09)
[2017-11-20] MEDS: BROVANA NEBU IH SCH ×2 (10:36→21:09)
--- NOTE | 2017-11-20 10:55 | Progress Note ---
Assessment and Plan COPD exacerbation Chest pain BiVentricular ICD s/p RV ICD lead revision (implanted new lead and abandoned previous lead) and BiVentricular ICD generator replacement 06/2015. Dilated Ischemic Cardiomyopathy echo 05/2017 reports a severe dilated cardiomyopathy, bioprosthetic mitral valve/mitral valve repair with at least moderate regurgitation. Ejection fraction 10-15% Hx of CAD s/p 2 way CABG s/p Mitral valve repair in 2002 HIV disease Hypertension Tobacco abuse Recommendations: Continue current medical therapy Once heart failure and COPD exacerbation is optimally treated, she will benefit from a predischarge Persantin thallium for cardiac ischemia assessment. Aggressive risk factor modification has been recommended including smoking cessation. Subjective Date of service: 11/20/17 Principal diagnosis: Acute COPD exacerbation; HIV +ve; Atypical Chest Pain; H/O CHF s/p AICD Interval history: Pt feeling slightly better. She has no other cardiac complaints. Objective Vital Signs Temp Pulse Pulse Pulse Resp Resp BP 11/20/17 10:42 11/20/17 10:33 82 16 11/20/17 10:19 75 127/84 11/20/17 10:00 75 16 11/20/17 07:08 98.4 F 75 16 127/84 11/20/17 05:51 98.2 F 76 18 11/20/17 04:33 76 119/77 11/20/17 00:56 98.9 F 82 18 11/19/17 22:50 87 11/19/17 20:22 86 20 11/19/17 20:12 84 20 11/19/17 19:58 98.9 F 78 20 11/19/17 19:52 22 11/19/17 19:28 80 137/81 11/19/17 18:28 112/77 11/19/17 18:00 86 11/19/17 16:00 20 11/19/17 15:36 98.2 F 78 16 11/19/17 15:08 89 20 11/19/17 15:00 88 18 11/19/17 11:24 98.4 F 83 18 112/71 BP Pulse Ox 11/20/17 10:42 100 11/20/17 10:33 11/20/17 10:19 11/20/17 10:00 99 11/20/17 07:08 99 11/20/17 05:51 119/77 95 11/20/17 04:33 93 07/29/18 00:56 113/72 97 11/19/17 22:50 11/19/17 20:22 11/19/17 20:12 100 11/19/17 19:58 137/81 92 11/19/17 19:52 11/19/17 19:28 91 11/19/17 18:28 11/19/17 18:00 11/19/17 16:00 11/19/17 15:36 97 11/19/17 15:08 11/19/17 15:00 11/19/17 11:24 97 - Physical Examination General: No Apparent Distress HEENT: Positive: PERRL Neck: Positive: neck supple Cardiac: Positive: Reg Rate and Rhythm Lungs: Positive: Wheezes (improved) Abdomen: Positive: Soft, Active Bowel Sounds Extremities: Present: edema - Labs and Meds Comprehensive Metabolic Panel 11/20/17 Range/Units 07:28 Sodium 140 (137-145) mmol/L Potassium 4.8 (3.6-5.0) mmol/L Chloride 95.8 L (98-107) mmol/L Carbon Dioxide 31 H (22-30) mmol/L BUN 34 H (7-17) mg/dL Creatinine 1.3 H (0.7-1.2) mg/dL Glucose 139 H (65-100) mg/dL Calcium 9.6 (8.4-10.2) mg/dL - Allied health notes Allied health notes reviewed: nursing
[2017-11-20] MEDS: MILK OF MAGNESIA PO PRN (11:52)
--- NOTE | 2017-11-20 16:24 | Progress Note ---
Assessment and Plan Acute on Chronic Hypoxemic Resp Failure Acute CODPD exacerbation HIV +ve Congestive heart failure status post CABG and defibrillator Atypical Chest Pain H/O Gout Cardiomegaly SERGIO on ckd Acute on chronic respiratory failure HIV/AIDS - added brovana and pulmicort - continue supplemental oxygen for target O2 Sats > 90% - continue GARY - continue systemic steroids but tapering - optimize cardiac function per cardiology (tentatively stress testing pre- discharge) - VTE w/p negative - GI & VTE prophylaxis - complete empiric levaquin course - agree with diuresis - continue other care per attending / other consultants ... 25' Subjective Date of service: 11/20/17 Principal diagnosis: Acute COPD exacerbation; HIV +ve; Atypical Chest Pain; H/O CHF s/p AICD Interval history: Patient is seen today for: Acute COPD exacerbation; HIV +ve; Atypical Chest Pain ; H/O CHF s/p AICD Seen and examined at bedside; 24-hour events reviewed; nursing and respiratory care staff consulted; states no more chest pains; less SOB; No N/V/F/C; denied acute chest pains; no hemoptysis Objective Vital Signs - 12hr 11/20/17 11/20/17 11/20/17 04:33 05:51 07:08 Temperature 98.2 F 98.4 F Pulse Rate 76 76 75 Pulse Rate [ Anterior Bilateral Throughout] Pulse Rate [ From Monitor] Respiratory 18 16 Rate Respiratory Rate [Anterior Bilateral Throughout] Blood Pressure 119/77 127/84 Blood Pressure 119/77 [Left] O2 Sat by Pulse 93 95 99 Oximetry 11/20/17 11/20/17 11/20/17 10:00 10:19 10:33 Temperature Pulse Rate 75 75 Pulse Rate [ 82 Anterior Bilateral Throughout] Pulse Rate [ 75 From Monitor] Respiratory 16 Rate Respiratory 16 Rate [Anterior Bilateral Throughout] Blood Pressure 127/84 Blood Pressure [Left] O2 Sat by Pulse 99 Oximetry 11/20/17 11/20/17 11/20/17 10:42 10:53 11:05 Temperature 98.3 F Pulse Rate 72 Pulse Rate [ 73 Anterior Bilateral Throughout] Pulse Rate [ From Monitor] Respiratory 16 Rate Respiratory 18 Rate [Anterior Bilateral Throughout] Blood Pressure 127/84 Blood Pressure [Left] O2 Sat by Pulse 100 98 Oximetry Constitutional: no acute distress, alert, other (middle aged AAF, normocephalic and atraumatic) Eyes: non-icteric ENT: oropharynx moist, other (mallampati 3) Neck: supple, no JVD, other (no thyromegaly) Effort: mildly labored Ascultation: Bilateral: diminished breath sounds, rhonchi, other (prolonged exp phase) Percussion: Bilateral: not dull Cardiovascular: regular rate and rhythm, other (No R/M) Gastrointestinal: normoactive bowel sounds, soft, non-tender, non-distended, other (No HSM) Integumentary: normal Extremities: no cyanosis, no edema, pulses normal, no ischemia or petechiae Neurologic: normal mental status, non-focal exam, pupils equal and round, CN II- XII normal, motor strength normal and Psychiatric: mood appropriate, affect normal CBC and BMP: 11/21/17 05:18 11/21/17 05:18 ABG, PT/INR, D-dimer: ABG POC ABG pH 7.415 (7.35-7.45) 11/16/17 18:01 POC ABG pCO2 52.4 (35-45) H 11/16/17 18:01 POC ABG pO2 63 (80-105) L 11/16/17 18:01 POC ABG HCO3 33.6 11/16/17 18:01 POC ABG Total CO2 35 11/16/17 18:01 POC ABG O2 Sat 91 11/16/17 18:01 PT/INR, D-dimer D-Dimer 274.00 ng/mlDDU (0-234) H 11/16/17 17:57 Abnormal lab findings: Abnormal Labs 11/16/17 11/16/17 11/16/17 15:47 15:47 17:57 WBC 4.2 L RBC MCV 98 H MCH 33 H RDW 17.3 H Lymph % (Auto) 36.5 H Eos % (Auto) 8.4 H Baso % (Auto) 2.6 H D-Dimer 274.00 H POC ABG pCO2 POC ABG pO2 Sodium 147 H Potassium 3.2 L Chloride Carbon Dioxide 35 H BUN Creatinine 1.3 H Glucose 102 H POC Glucose Lactate Dehydrogenase NT-Pro-B Natriuret Pep 11/16/17 11/16/17 11/16/17 17:57 17:57 18:01 WBC RBC MCV MCH RDW Lymph % (Auto) Eos % (Auto) Baso % (Auto) D-Dimer POC ABG pCO2 52.4 H POC ABG pO2 63 L Sodium Potassium Chloride Carbon Dioxide BUN Creatinine Glucose POC Glucose Lactate Dehydrogenase 244 H NT-Pro-B Natriuret Pep 5214 H 11/18/17 11/18/17 11/19/17 06:07 06:07 04:28 WBC RBC 3.63 L MCV 98 H MCH 33 H RDW 17.5 H Lymph % (Auto) Eos % (Auto) Baso % (Auto) D-Dimer POC ABG pCO2 POC ABG pO2 Sodium Potassium Chloride 96.3 L 96.2 L Carbon Dioxide 32 H 34 H BUN 30 H 39 H Creatinine 1.7 H 1.6 H Glucose 154 H 246 H POC Glucose Lactate Dehydrogenase NT-Pro-B Natriuret Pep 11/19/17 11/20/17 11/20/17 12:09 07:28 11:18 WBC RBC MCV MCH RDW Lymph % (Auto) Eos % (Auto) Baso % (Auto) D-Dimer POC ABG pCO2 POC ABG pO2 Sodium Potassium Chloride 95.8 L Carbon Dioxide 31 H BUN 34 H Creatinine 1.3 H Glucose 139 H POC Glucose 267 H 163 H Lactate Dehydrogenase NT-Pro-B Natriuret Pep Allied health notes reviewed: nursing
[2017-11-20] MEDS: MORPHINE IV PRN (17:54)
[2017-11-20] MEDS: LASIX IV SCH ×2 (19:38→20:19)
[2017-11-20] MEDS: COLACE PO PRN (21:20)
[2017-11-21] MEDS: PERCOCET 5/325 PO PRN ×3 (02:14→19:51)
[2017-11-21] MEDS: NITRO-BID 2% TP SCH ×4 (05:36→18:00)
[2017-11-21] MEDS: ORAJEL 20% MM PRN ×2 (05:46→17:13)
[2017-11-21 06:26] LABS: Hematocrit 38.6 % (30.3-42.9); Mean Corpuscular HGB Conc 34 % (30-34); Mean Corpuscular Hemoglobin 33 pg (28-32); Mean Corpuscular Volume 98 fl (79-97); Platelet Count 168 K/mm3 (140-440); Red Blood Count 3.94 M/mm3 (3.65-5.03); Red Cell Distribution Width 17.4 % (13.2-15.2)
[2017-11-21 06:50] LABS: BUN/Creatinine Ratio 26; Blood Urea Nitrogen 29 mg/dL (7-17); Calcium 9.4 mg/dL (8.4-10.2); Hemolysis Index 11
[2017-11-21] MEDS: PULMICORT IH SCH ×2 (08:07→20:20)
[2017-11-21] MEDS: DUONEB *Not for PRN Use IH SCH ×2 (08:07→20:21)
[2017-11-21] MEDS: BROVANA NEBU IH SCH ×2 (08:07→20:20)
[2017-11-21] MEDS: MILK OF MAGNESIA PO PRN (09:33)
[2017-11-21] MEDS: PLAVIX PO SCH (09:33)
[2017-11-21] MEDS: LOPRESSOR PO SCH ×2 (09:35→22:44)
[2017-11-21] MEDS: ZYLOPRIM PO SCH (09:35)
[2017-11-21] MEDS: BABY ASPIRIN PO SCH (09:37)
[2017-11-21] MEDS: HumaLOG SUB-Q SCH ×4 (09:37→22:46)
[2017-11-21] MEDS: HEPARIN SUB-Q SCH ×2 (09:37→22:43)
[2017-11-21] MEDS: ZESTRIL PO SCH (09:38)
--- NOTE | 2017-11-21 09:44 | Progress Note ---
Assessment and Plan COPD exacerbation Chest pain BiVentricular ICD s/p RV ICD lead revision (implanted new lead and abandoned previous lead) and BiVentricular ICD generator replacement 06/2015. Dilated Ischemic Cardiomyopathy echo 05/2017 reports a severe dilated cardiomyopathy, bioprosthetic mitral valve/mitral valve repair with at least moderate regurgitation. Ejection fraction 10-15% Hx of CAD s/p 2 way CABG s/p Mitral valve repair in 2002 HIV disease Hypertension Tobacco abuse Recommendations: Continue medical therapy for heart failure to include diuretics, afterload reducing agents and beta blockers. Persantine thallium for cardiac ischemia assessment tomorrow morning. Aggressive risk factor modification has been recommended including smoking cessation. Subjective Date of service: 11/21/17 Principal diagnosis: Acute COPD exacerbation; HIV +ve; Atypical Chest Pain; H/O CHF s/p AICD Interval history: Patient reports her breathing is better. She denies chest pain. Objective Vital Signs Temp Pulse Pulse Pulse Resp Resp BP 11/21/17 07:58 98.2 F 72 18 125/80 11/21/17 05:24 98.0 F 71 18 93/73 11/20/17 21:20 78 18 11/20/17 21:11 75 18 11/20/17 20:10 73 11/20/17 19:56 98.4 F 71 18 11/20/17 19:17 75 16 11/20/17 16:16 98.0 F 70 16 115/89 11/20/17 11:05 98.3 F 72 16 127/84 11/20/17 10:53 73 18 11/20/17 10:42 11/20/17 10:33 82 16 11/20/17 10:19 75 127/84 11/20/17 10:00 75 75 16 BP Pulse Ox 11/21/17 07:58 93 11/21/17 05:24 94 11/20/17 21:20 11/20/17 21:11 95 11/20/17 20:10 11/20/17 19:56 116/85 98 11/20/17 19:17 11/20/17 16:16 99 11/20/17 11:05 98 11/20/17 10:53 11/20/17 10:42 100 11/20/17 10:33 11/20/17 10:19 11/20/17 10:00 99 - Physical Examination General: No Apparent Distress HEENT: Positive: PERRL Cardiac: Positive: Other (paced) Lungs: Positive: Decreased Breath Sounds Neuro: Positive: Grossly Intact Extremities: Absent: edema - Labs and Meds CBC 11/21/17 Range/Units 05:18 WBC 6.6 (4.5-11.0) K/mm3 RBC 3.94 (3.65-5.03) M/mm3 Hgb 13.0 (10.1-14.3) gm/dl Hct 38.6 (30.3-42.9) % Plt Count 168 (140-440) K/mm3 Comprehensive Metabolic Panel 11/21/17 Range/Units 05:18 Sodium 139 (137-145) mmol/L Potassium 5.3 H (3.6-5.0) mmol/L Chloride 96.4 L (98-107) mmol/L Carbon Dioxide 35 H (22-30) mmol/L BUN 29 H (7-17) mg/dL Creatinine 1.1 (0.7-1.2) mg/dL Glucose 129 H (65-100) mg/dL Calcium 9.4 (8.4-10.2) mg/dL - Allied health notes Allied health notes reviewed: nursing
[2017-11-21] MEDS: K-DUR PO SCH (11:13)
[2017-11-21] MEDS ORDERED: KIONEX PR ONE (12:00)
[2017-11-21] MEDS: LEVAQUIN PO SCH (12:42)
--- NOTE | 2017-11-21 14:36 | Progress Note ---
Assessment and Plan Acute on Chronic Hypoxemic Resp Failure Acute CODPD exacerbation HIV +ve Congestive heart failure status post CABG and defibrillator Atypical Chest Pain H/O Gout Cardiomegaly SERGIO on ckd Acute on chronic respiratory failure HIV/AIDS - added brovana and pulmicort - continue supplemental oxygen for target O2 Sats > 90% - continue GARY - continue systemic steroids but tapering - optimize cardiac function per cardiology (tentatively stress testing pre- discharge) - VTE w/p negative - GI & VTE prophylaxis - complete empiric levaquin course - agree with diuresis - continue other care per attending / other consultants ... 25' Subjective Date of service: 11/21/17 Principal diagnosis: Acute COPD exacerbation; HIV +ve; Atypical Chest Pain; H/O CHF s/p AICD Interval history: Patient is seen today for: Acute COPD exacerbation; HIV +ve; Atypical Chest Pain ; H/O CHF s/p AICD Seen and examined at bedside; 24-hour events reviewed; nursing and respiratory care staff consulted; no adverse overnight events reported to me Objective Vital Signs - 12hr 11/21/17 11/21/17 11/21/17 05:24 07:58 08:07 Temperature 98.0 F 98.2 F Pulse Rate 71 72 Pulse Rate [ 75 Anterior Bilateral Throughout] Respiratory 18 18 Rate Respiratory 18 Rate [Anterior Bilateral Throughout] Blood Pressure 93/73 125/80 O2 Sat by Pulse 94 93 98 Oximetry 11/21/17 11/21/17 11/21/17 08:17 09:35 10:00 Temperature Pulse Rate 80 71 Pulse Rate [ 72 Anterior Bilateral Throughout] Respiratory Rate Respiratory 20 Rate [Anterior Bilateral Throughout] Blood Pressure O2 Sat by Pulse Oximetry Constitutional: no acute distress, alert, other (middle aged AAF, normocephalic and atraumatic) Eyes: non-icteric ENT: oropharynx moist, other (mallampati 3) Neck: supple, no JVD, other (no thyromegaly) Effort: mildly labored Ascultation: Bilateral: diminished breath sounds, rhonchi, other (prolonged exp phase) Percussion: Bilateral: not dull Cardiovascular: regular rate and rhythm, other (No R/M) Gastrointestinal: normoactive bowel sounds, soft, non-tender, non-distended, other (No HSM) Integumentary: normal Extremities: no cyanosis, no edema, pulses normal, no ischemia or petechiae Neurologic: normal mental status, non-focal exam, pupils equal and round, CN II- XII normal, motor strength normal and Psychiatric: mood appropriate, affect normal CBC and BMP: 11/21/17 05:18 11/21/17 05:18 ABG, PT/INR, D-dimer: ABG POC ABG pH 7.415 (7.35-7.45) 11/16/17 18:01 POC ABG pCO2 52.4 (35-45) H 11/16/17 18:01 POC ABG pO2 63 (80-105) L 11/16/17 18:01 POC ABG HCO3 33.6 11/16/17 18:01 POC ABG Total CO2 35 11/16/17 18:01 POC ABG O2 Sat 91 11/16/17 18:01 PT/INR, D-dimer D-Dimer 274.00 ng/mlDDU (0-234) H 11/16/17 17:57 Abnormal lab findings: Abnormal Labs 11/16/17 11/16/17 11/16/17 15:47 15:47 17:57 WBC 4.2 L RBC MCV 98 H MCH 33 H RDW 17.3 H Lymph % (Auto) 36.5 H Eos % (Auto) 8.4 H Baso % (Auto) 2.6 H D-Dimer 274.00 H POC ABG pCO2 POC ABG pO2 Sodium 147 H Potassium 3.2 L Chloride Carbon Dioxide 35 H BUN Creatinine 1.3 H Glucose 102 H POC Glucose Lactate Dehydrogenase NT-Pro-B Natriuret Pep 11/16/17 11/16/17 11/16/17 17:57 17:57 18:01 WBC RBC MCV MCH RDW Lymph % (Auto) Eos % (Auto) Baso % (Auto) D-Dimer POC ABG pCO2 52.4 H POC ABG pO2 63 L Sodium Potassium Chloride Carbon Dioxide BUN Creatinine Glucose POC Glucose Lactate Dehydrogenase 244 H NT-Pro-B Natriuret Pep 5214 H 11/18/17 11/18/17 11/19/17 06:07 06:07 04:28 WBC RBC 3.63 L MCV 98 H MCH 33 H RDW 17.5 H Lymph % (Auto) Eos % (Auto) Baso % (Auto) D-Dimer POC ABG pCO2 POC ABG pO2 Sodium Potassium Chloride 96.3 L 96.2 L Carbon Dioxide 32 H 34 H BUN 30 H 39 H Creatinine 1.7 H 1.6 H Glucose 154 H 246 H POC Glucose Lactate Dehydrogenase NT-Pro-B Natriuret Pep 11/19/17 11/20/17 11/20/17 12:09 07:28 11:18 WBC RBC MCV MCH RDW Lymph % (Auto) Eos % (Auto) Baso % (Auto) D-Dimer POC ABG pCO2 POC ABG pO2 Sodium Potassium Chloride 95.8 L Carbon Dioxide 31 H BUN 34 H Creatinine 1.3 H Glucose 139 H POC Glucose 267 H 163 H Lactate Dehydrogenase NT-Pro-B Natriuret Pep 11/20/17 11/20/17 11/21/17 16:40 21:16 05:18 WBC RBC MCV 98 H MCH 33 H RDW 17.4 H Lymph % (Auto) Eos % (Auto) Baso % (Auto) D-Dimer POC ABG pCO2 POC ABG pO2 Sodium Potassium Chloride Carbon Dioxide BUN Creatinine Glucose POC Glucose 132 H 221 H Lactate Dehydrogenase NT-Pro-B Natriuret Pep 11/21/17 11/21/17 11/21/17 05:18 05:34 12:29 WBC RBC MCV MCH RDW Lymph % (Auto) Eos % (Auto) Baso % (Auto) D-Dimer POC ABG pCO2 POC ABG pO2 Sodium Potassium 5.3 H Chloride 96.4 L Carbon Dioxide 35 H BUN 29 H Creatinine Glucose 129 H POC Glucose 123 H 162 H Lactate Dehydrogenase NT-Pro-B Natriuret Pep Allied health notes reviewed: nursing
[2017-11-21] MEDS: PROVENTIL IH PRN (16:07)
--- NOTE | 2017-11-21 17:39 | Progress Note ---
Assessment and Plan Assessment and plan: patient is a 57 year old female who has a having chest pain going on for a few days associated with shortness of breath. He has no history of nausea and vomiting, there is no history of diaphoresis the patient also denies history of dizziness and said that the pain does not radiate. She has no history of fever and no history of cough or chills. Atypical chest pain Pleurtic secondary to COPD COPD exacerbation SERGIO on ckd Hyperkalemia Acute on chronic respiratory failure HIV/AIDS Congestive heart failure status post CABG and defibrillator Vascular disease GOUT PLAN * Supportive care * Creatinine improved TO 1.1, * Brovana and pulmoncort * Continue solumedrol AND TAPER * NEBS, LABA/GARY * Inhaled cortiocosteroids * Smoking cessation counselling * Cardiology input noted, ischemic work up plan for stress test in am * on Discharge, will give script for dounebs and * DVT/GI prophy Plan discussed with the patient in detail and she verbalized understanding History Interval history: Patient seen and examined this morning continues with some notable improvement but not yet at baseline Hospitalist Physical - Physical exam Narrative exam: VITAL SIGNS: Reviewed. GENERAL: The patient appeared well nourished and normally developed. Vital signs as documented. HEAD: No signs of head trauma. EYES: Pupils are equal. Extraocular motions intact. EARS: Hearing grossly intact. MOUTH: Oropharynx is normal. NECK: No adenopathy, no JVD. CHEST: Chest with expiratory wheeze breath sounds bilaterally improving CARDIAC: Regular rate and rhythm. S1 and S2, without murmurs, gallops, or rubs. VASCULAR: No Edema. Peripheral pulses normal and equal in all extremities. ABDOMEN: Soft, without detectable tenderness. No sign of distention. No rebound or guarding, and no masses palpated. Bowel Sounds normal. MUSCULOSKELETAL: Good range of motion of all major joints. Extremities without clubbing, cyanosis or edema. NEUROLOGIC EXAM: Alert and oriented x 3. No focal sensory or strength deficits. Speech normal. Follows commands. PSYCHIATRIC: Mood normal. SKIN: No rash or lesions. - Constitutional Vitals: Temp Pulse Resp BP Pulse Ox 98.4 F 68 18 129/86 99 11/21/17 12:17 11/21/17 12:17 11/21/17 12:17 11/21/17 12:11/21/17 12:17 General appearance: Present: no acute distress Results - Labs CBC & Chem 7: 11/21/17 05:18 11/21/17 05:18 Labs: Laboratory Last Values WBC 6.6 K/mm3 (4.5-11.0) 11/21/17 05:18 RBC 3.94 M/mm3 (3.65-5.03) 11/21/17 05:18 Hgb 13.0 gm/dl (10.1-14.3) 11/21/17 05:18 Hct 38.6 % (30.3-42.9) 11/21/17 05:18 MCV 98 fl (79-97) H 11/21/17 05:18 MCH 33 pg (28-32) H 11/21/17 05:18 MCHC 34 % (30-34) 11/21/17 05:18 RDW 17.4 % (13.2-15.2) H 11/21/17 05:18 Plt Count 168 K/mm3 (140-440) 11/21/17 05:18 Lymph % (Auto) 36.5 % (13.4-35.0) H 11/16/17 15:47 [place] % (Auto) 7.0 % (0.0-7.3) 11/16/17 15:47 Eos % (Auto) 8.4 % (0.0-4.3) H 11/16/17 15:47 Baso % (Auto) 2.6 % (0.0-1.8) H 11/16/17 15:47 Lymph # 1.5 K/mm3 (1.2-5.4) 11/16/17 15:47 [place] # 0.3 K/mm3 (0.0-0.8) 11/16/17 15:47 Eos # 0.4 K/mm3 (0.0-0.4) 11/16/17 15:47 Baso # 0.1 K/mm3 (0.0-0.1) 11/16/17 15:47 Seg Neutrophils % 45.5 % (40.0-70.0) 11/16/17 15:47 Seg Neutrophils # 1.9 K/mm3 (1.8-7.7) 11/16/17 15:47 D-Dimer 274.00 ng/mlDDU (0-234) H 11/16/17 17:57 POC ABG pH 7.415 (7.35-7.45) 11/16/17 18:01 POC ABG pCO2 52.4 (35-45) H 11/16/17 18:01 POC ABG pO2 63 (80-105) L 11/16/17 18:01 POC ABG HCO3 33.6 11/16/17 18:01 POC ABG Total CO2 35 11/16/17 18:01 POC ABG O2 Sat 91 11/16/17 18:01 POC ABG Base Excess 9 11/16/17 18:01 FiO2 21 % 11/16/17 18:01 Sodium 139 mmol/L (137-145) 11/21/17 05:18 Potassium 5.3 mmol/L (3.6-5.0) H 11/21/17 05:18 Chloride 96.4 mmol/L (98-107) L 11/21/17 05:18 Carbon Dioxide 35 mmol/L (22-30) H 11/21/17 05:18 Anion Gap 13 mmol/L 11/21/17 05:18 BUN 29 mg/dL (7-17) H 11/21/17 05:18 Creatinine 1.1 mg/dL (0.7-1.2) 11/21/17 05:18 Estimated GFR > 60 ml/min 11/21/17 05:18 BUN/Creatinine Ratio 26 % 11/21/17 05:18 Glucose 129 mg/dL (65-100) H 11/21/17 05:18 POC Glucose 162 (70-105) H 11/21/17 12:29 Calcium 9.4 mg/dL (8.4-10.2) 11/21/17 05:18 Lactate Dehydrogenase 244 units/L (91-180) H 11/16/17 17:57 Total Creatine Kinase 79 units/L (30-135) 11/17/17 05:20 CK-MB (CK-2) 2.9 ng/mL (0.0-4.0) 11/17/17 05:20 CK-MB (CK-2) Rel Index 3.6 (0-4) 11/17/17 05:20 Troponin T < 0.010 ng/mL (0.00-0.029) 11/16/17 23:44 NT-Pro-B Natriuret Pep 5214 pg/mL (0-900) H 11/16/17 17:57
[2017-11-21] MEDS: LASIX IV SCH (22:50)
[2017-11-22] MEDS: PERCOCET 5/325 PO PRN ×3 (02:04→16:15)
[2017-11-22] MEDS: ORAJEL 20% MM PRN (02:08)
[2017-11-22 06:32] LABS: BUN/Creatinine Ratio 33; Blood Urea Nitrogen 26 mg/dL (7-17); Calcium 8.9 mg/dL (8.4-10.2); Hemolysis Index 10
[2017-11-22] MEDS: NITRO-BID 2% TP SCH ×4 (06:59→18:39)
[2017-11-22] MEDS: HumaLOG SUB-Q SCH ×2 (07:42→16:43)
[2017-11-22] MEDS ORDERED: LEXISCAN IV ONE (10:06)
[2017-11-22] MEDS: LEVAQUIN PO SCH (10:35)
[2017-11-22] MEDS: BABY ASPIRIN PO SCH (10:35)
[2017-11-22] MEDS: HEPARIN SUB-Q SCH (10:36)
[2017-11-22] MEDS: LOPRESSOR PO SCH (10:37)
[2017-11-22 10:58] VITALS: BP 134/82
--- NOTE | 2017-11-22 11:19 | Progress Note ---
Assessment and Plan - Patient Problems (1) Acute on chronic systolic (congestive) heart failure Current Visit: No Status: Acute Plan to address problem: Heart failure symptoms have resolved with aggressive medical therapy. Persantine thallium performed today for further assessment of underlying coronary artery disease, results are pending. Subjective Date of service: 11/22/17 Principal diagnosis: Acute COPD exacerbation; HIV +ve; Atypical Chest Pain; H/O CHF s/p AICD Interval history: Patient looks and feels better, no chest pain, shortness of breath has resolved. There is no edema. She underwent a Persantine thallium stress test today, results pending. Objective Vital Signs Temp Pulse Pulse Resp Resp BP Pulse Ox 11/22/17 10:15 73 134/82 11/22/17 10:14 73 130/82 11/22/17 10:13 74 126/84 11/22/17 10:12 74 122/81 11/22/17 10:11 77 110/72 11/22/17 10:05 68 126/85 11/22/17 08:39 98.5 F 71 18 138/89 100 11/22/17 06:59 64 113/68 11/22/17 03:32 98.2 F 69 18 113/68 97 11/22/17 02:04 20 11/21/17 23:28 98.3 F 75 18 119/72 94 11/21/17 22:47 67 20 11/21/17 22:44 76 111/63 11/21/17 22:00 73 11/21/17 21:20 98.9 F 73 18 111/68 100 11/21/17 20:23 97 11/21/17 20:22 77 20 11/21/17 17:16 98.2 F 74 18 109/67 98 11/21/17 16:17 88 20 11/21/17 16:07 85 20 11/21/17 12:17 98.4 F 68 18 129/86 99 - Physical Examination General: No Apparent Distress HEENT: Positive: PERRL Neck: Positive: neck supple Cardiac: Positive: Reg Rate and Rhythm Lungs: Positive: Decreased Breath Sounds Neuro: Positive: Grossly Intact Abdomen: Positive: Soft, Active Bowel Sounds Skin: Positive: Clear Extremities: Absent: edema - Labs and Meds Comprehensive Metabolic Panel 11/21/17 11/22/17 Range/Units 17:41 05:38 Sodium 141 (137-145) mmol/L Potassium 4.2 D 4.2 (3.6-5.0) mmol/L Chloride 94.1 L (98-107) mmol/L Carbon Dioxide 37 H (22-30) mmol/L BUN 26 H (7-17) mg/dL Creatinine 0.8 (0.7-1.2) mg/dL Glucose 159 H (65-100) mg/dL Calcium 8.9 (8.4-10.2) mg/dL - Allied health notes Allied health notes reviewed: nursing
--- NOTE | 2017-11-22 12:35 | Event Note ---
Date: 11/22/17 Thallium shows a severe dilatd cardiomyopathy, with a large fixed defect of prior large lateral wall infarct. No reversible ischemia demonstrated. Recommend medical therapy for CAD and systolic HF. OK for cardiac discharge.
--- NOTE | 2017-11-22 13:39 | Discharge Summary ---
Providers - Providers Date of Admission: 11/16/17 23:21 Attending physician: REID CARABALLO MD 11/17/17 10:09 Consult to Physician [CONS] Routine Comment: Consulting Provider: YSABEL MARTINEZ Physician Instructions: Reason For Exam: copd Primary care physician: [employer] Hospitalization Condition: Stable Disposition: DC/[place]-06 HOME UNDER HOME HLTH Time spent for discharge: 35 mins Exam - Constitutional Vitals: Temp Pulse Resp BP Pulse Ox 98.5 F 73 18 134/82 100 11/22/17 08:39 11/22/17 10:15 11/22/17 08:39 11/22/17 10:15 11/22/17 08:39 Plan Activity: advance as tolerated, fall precautions Diet: low salt Special Instructions: record daily BP diary, smoking cessation, home oxygen via (nasal cannula @ 2 liters per minute) Durable Medical Equipment Needed Upon Discharge: Oxygen Follow up with: GABRIEL NOBLE MD [Primary Care Provider] - 3-5 Days LAN FELIX MD [Staff Physician] - 7 Days KATELYN ROB MD [Staff Physician] - 7 Days Prescriptions: ALBUTEROL Inhaler [ProAir HFA Inhaler] 2 puff IH QID PRN #1 inha PRN Reason: Shortness Of Breath Arformoterol Nebu [Brovana Nebu] 15 mcg IH Q12HRT #60 ml Budesonide [Pulmicort Respules] 0.5 mg IH Q12HRT #60 nebu Carvedilol [Coreg] 12.5 mg PO BID #60 tablet Furosemide [Lasix TAB] 40 mg PO DAILY #30 tablet Levofloxacin [Levaquin TAB] 750 mg PO Q24HR #2 tablet Nicotine [Habitrol] 21 mg TD 2200 #7 patch oxyCODONE /ACETAMINOPHEN [Percocet 5/325 mg] 1 tab PO Q6H PRN #14 tablet PRN Reason: Pain, Moderate (4-6) Prednisone [predniSONE 10 mg (6-Day Pack, 21 Tabs)] 10 mg PO .TAPER #1 tab.ds.pk Ipratropium/Albuterol Sulfate [DUONEB *Not for PRN Use*] 1 ampul IH BIDRT #60 ampul.neb
[2017-11-22] MEDS: BROVANA NEBU IH SCH (15:29)
[2017-11-22] MEDS: DUONEB *Not for PRN Use IH SCH (15:29)
[2017-11-22] MEDS: PULMICORT IH SCH (15:30)
[2017-11-22] MEDS: PLAVIX PO SCH (18:35)
[2017-11-22] MEDS: ZESTRIL PO SCH (18:36)
[2017-11-22] MEDS: ZYLOPRIM PO SCH (18:37)
--- NOTE | 2017-11-23 09:14 | Treadmill Report ---
THALLIUM STRESS TEST LEFT VENTRICLE: Left ventricle is severely dilated. There is a large fixed inferior and lateral wall defect. On the resting study, there is no significant reversibility. Gated analysis demonstrates severe left ventricular systolic dysfunction with ejection fraction of 10%. CONCLUSION: Evidence of severe dilated cardiomyopathy with left ventricular ejection fraction 10%. There is a large inferior and lateral wall defect consistent with a prior large myocardial infarction. There is no reversible periinfarct ischemia demonstrated. Clinical correlation is recommended. [facility]# [id number] [place]/NTS
== END 2017-11-22 18:30 | disposition home health service (06) | DRG 291 ==
LOC: ED 14:22 → 4A 23:21
PROVIDERS: ADMIT Internal Medicine; ATTEND Internal Medicine
PROC: 4A033R1 Measurement of Arterial Saturation, Peripheral, Percutaneous Approach (ICD-10-PCS; principal; 2017-11-16)
DX: I13.0 Hypertensive heart and chronic kidney disease with heart failure and stage 1 through stage 4 chronic kidney disease, or unspecified chronic kidney disease (principal); B20 Human immunodeficiency virus [HIV] disease; J96.21 Acute and chronic respiratory failure with hypoxia; I50.23 Acute on chronic systolic (congestive) heart failure; N17.9 Acute kidney failure, unspecified; J44.1 Chronic obstructive pulmonary disease with (acute) exacerbation; I25.10 Atherosclerotic heart disease of native coronary artery without angina pectoris; F17.200 Nicotine dependence, unspecified, uncomplicated; I73.9 Peripheral vascular disease, unspecified; E87.6 Hypokalemia; M10.9 Gout, unspecified; I42.0 Dilated cardiomyopathy; N18.9 Chronic kidney disease, unspecified; I25.5 Ischemic cardiomyopathy; Z88.0 Allergy status to penicillin; Z79.899 Other long term (current) drug therapy; Z79.82 Long term (current) use of aspirin; Z79.2 Long term (current) use of antibiotics; Z95.1 Presence of aortocoronary bypass graft; Z95.3 Presence of xenogenic heart valve; Z95.810 Presence of automatic (implantable) cardiac defibrillator; Z71.6 Tobacco abuse counseling
CPT/HCPCS: 36415; 71045; 78452; 78582; 80048; 82550; 82553; 82803; 82962; 83615; 83880; 84132; 84484; 85025; 85027; 85379; 93005; 93010; 93017; 93970; 94640; 94760; 96374; 96375; 99406; A9502; A9540; A9558; J1644; J1815; J1940; J1956; J2260; J2270; J2405; J2785; J2920

== ENCOUNTER 2018-01-01 14:58 | Emergency (ER) | payer MEDICARE ==
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
== END 2018-01-01 16:33 ==
LOC: ED 14:58 → MERGE 14:58 → ED 16:33
DX: I50.9 Heart failure, unspecified (principal)
CPT/HCPCS: 92950